=== PATIENT | female | born 1935 | race Caucasian/White ===

== ENCOUNTER → 2018-08-04 | Outpatient (CLI) | payer MEDICARE, OTHER ==
[2018-05-02 17:40] VITALS: BP 148/69
[~2018-08-04] MED LIST: ACET325T9 PO; ALIR150P SQ; CARV6.252 PO; CHOL10003 PO; CYAN10005 PO; DIFL500T PO; LOSA50TA7 PO; MELA3TAB2 PO; PROP150T2 PO; SUCR1TAB PO; TIZA4TAB PO; TORS20TA2 PO; WARF2TAB96 PO; ZOLP5TAB5 PO
--- NOTE | 2018-08-04 16:01 | RAD ---
LOWER EXT JOINT WO RT dated 08/04/2018 3:30 PM Indication: GENERALIZED WROSENING KNEE PAIN X 5DAYS, NO SX HX, NO PRIORS pain .. Comparison: No comparison is available. Technique: Routine multiplanar multisequence imaging performed. . Findings: Mild hypertrophic changes in all 3 knee compartments. Mild thinning and surface irregularity of the articular cartilage throughout. There is full-thickness cartilage fissuring at the trochlear groove and medial femoral trochlea with near full-thickness cartilage loss at the medial and lateral patellar facet. No bone marrow edema. There is a moderate size joint effusion. There is heterogeneous debris or a large loose body within the suprapatellar joint space that measures up to 2.7 cm in size. No significant synovial thickening. Tiny popliteal cyst. Anterior cruciate and posterior cruciate ligaments intact. Medial and lateral collateral complexes are intact. Iliotibial band, popliteus tendon and pes anserine complex within normal limits. Quadriceps and patellar tendon are intact. No abnormality of the medial or lateral retinaculum. Mild patchy superficial infrapatellar edema, nonspecific. There is linear oblique signal at the posterior horn of medial meniscus that appears to extend to the tibial articular surface on 2 consecutive sagittal slices. Anterior horn and body are intact. Lateral meniscus is normal in morphology and signal. IMPRESSION: 1. Suspected small horizontal oblique tear posterior horn the medial meniscus. 2. Mild tricompartmental degenerative arthrosis and chondromalacia. There is full-thickness cartilage loss of the anterior compartment. 3. Moderate size joint effusion with heterogeneous signal at the suprapatellar joint space. This could represent a large loose body or complex joint effusion or hemarthrosis. Correlate with plain film radiographs. Electronically signed by: Dayo Latif MD (08/04/2018 3:57 PM) [id number]
== END | disposition home or self-care (01) ==
LOC: MRI 14:47
PROVIDERS: ATTEND Family Medicine
DX: M17.11 Unilateral primary osteoarthritis, right knee (principal); M25.461 Effusion, right knee; M94.261 Chondromalacia, right knee; R60.0 Localized edema
CPT/HCPCS: 73721

== ENCOUNTER 2019-11-21 16:27 | Observation (INO) | payer MEDICARE ==
[~2019-11-21] VITALS: Ht 152.4 cm; Wt 66.6 kg
[~2019-11-21 16:27] MED LIST changes: +CARV6.2511 PO; -CARV6.252 PO; +CYAN-25 PO; -CYAN10005 PO; +LOSA-73 PO; -LOSA50TA7 PO; -MELA3TAB2 PO; +MELA3TAB56 PO; -TIZA4TAB PO; +TIZA4TAB2 PO
--- NOTE | 2019-11-21 16:54 | PHYS DOC ---
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 She states that she had 2 episodes today when she felt her heart beating fast, consistent with her prior atrial fibrillation, the second episode of which, was associated with discomfort in her chest. While her palpitations have improved, she is still having some generalized chest discomfort. A prehospital EKG did document the patient in a rhythm which appeared to be consistent with rapid atrial fibrillation, says he was some lateral ST depression. There was no ST elevation. The patient did take at least 324 mg of aspirin prior to arrival. There are no alleviating or exacerbating factors to her symptoms. Review of Systems Review of Systems Constitutional: Denies fever or chills [] Eyes: Denies change in visual acuity, redness, or eye pain [] HENT: Denies nasal congestion or sore throat [] Respiratory: Denies cough or shortness of breath [] Cardiovascular: No additional information not addressed in HPI [] GI: Denies abdominal pain, nausea, vomiting, bloody stools or diarrhea [] : Denies dysuria or hematuria [] Musculoskeletal: Denies back pain or joint pain [] Integument: Denies rash or skin lesions [] Neurologic: Denies headache, focal weakness or sensory changes [] Endocrine: Denies polyuria or polydipsia [] All other systems were reviewed and found to be within normal limits, except as documented in this note. Allergies Allergies Allergies Coded Allergies Type Severity Reaction Last Updated Verified ezetimibe Allergy Unknown 04/30/18 Yes fexofenadine Allergy Unknown 04/30/18 Yes gabapentin Allergy Unknown 04/30/18 Yes tramadol Allergy Unknown 04/30/18 Yes Uncoded Allergies Type Severity Reaction Last Updated Verified DICLOANCE Allergy Unknown 04/30/18 Physical Exam Physical Exam PHYSICAL EXAM: CONSTITUTIONAL: Well developed, well nourished HEAD: normocephalic, atraumatic EENT: PERRL, EOMI. Conjunctivae normal color, sclerae non-icteric; moist mucous membranes. NECK: Supple, non-tender; no meningismus. LUNGS: Lungs CTA, breathing even and unlabored. Normal air movement. HEART: Regular rate and rhythm, no murmur CHEST: No deformity; non-tender ABDOMEN: The abdomen is soft, and non-tender, no masses or bruits. EXTREM: Normal ROM; no deformity, no calf tenderness. Normal pulses palpable in all extremities. There is no pedal edema. SKIN: No rash; no diaphoresis NEURO: Alert; normal speech and cognition; CN's grossly intact; strength grossly intact without focal deficit. BACK: No CVA TTP. Current Patient Data Vital Signs Vital Signs Date Time Temp Pulse Resp B/P (MAP) Pulse Ox O2 Delivery O2 Flow Rate FiO2 11/21/19 17:18 98.0 82 16 158/90 (112) 99 Room Air 98.0 Lab Values Laboratory Tests Test 11/21/19 16:38 White Blood Count 7.4 x10^3/uL (4.0-11.0) Red Blood Count 3.87 x10^6/uL (3.50-5.40) Hemoglobin 11.8 g/dL (12.0-15.5) L Hematocrit 34.8 % (36.0-47.0) L Mean Corpuscular Volume 90 fL (79-100) Mean Corpuscular Hemoglobin 30 pg (25-35) Mean Corpuscular Hemoglobin Concent 34 g/dL (31-37) Red Cell Distribution Width 13.2 % (11.5-14.5) Platelet Count 379 x10^3/uL (140-400) Neutrophils (%) (Auto) 70 % (31-73) Lymphocytes (%) (Auto) 18 % (24-48) L Monocytes (%) (Auto) 10 % (0-9) H Eosinophils (%) (Auto) 2 % (0-3) Basophils (%) (Auto) 0 % (0-3) Neutrophils # (Auto) 5.2 x10^3/uL (1.8-7.7) Lymphocytes # (Auto) 1.3 x10^3/uL (1.0-4.8) Monocytes # (Auto) 0.7 x10^3/uL (0.0-1.1) Eosinophils # (Auto) 0.1 x10^3/uL (0.0-0.7) Basophils # (Auto) 0.0 x10^3/uL (0.0-0.2) Prothrombin Time 15.4 SEC (11.7-14.0) H Prothrombin Time INR 1.3 (0.8-1.1) H Sodium Level 138 mmol/L (136-145) Potassium Level 3.8 mmol/L (3.5-5.1) Chloride Level 103 mmol/L (98-107) Carbon Dioxide Level 27 mmol/L (21-32) Anion Gap 8 (6-14) Blood Urea Nitrogen 17 mg/dL (7-20) Creatinine 0.9 mg/dL (0.6-1.0) Estimated GFR (Cockcroft-Gault) 59.4 BUN/Creatinine Ratio 19 (6-20) Glucose Level 122 mg/dL (70-99) H Calcium Level 9.6 mg/dL (8.5-10.1) Total Bilirubin 0.2 mg/dL (0.2-1.0) Aspartate Amino Transferase (AST) 15 U/L (15-37) Alanine Aminotransferase (ALT) 15 U/L (14-59) Alkaline Phosphatase 67 U/L (46-116) Troponin I Quantitative < 0.017 ng/mL (0.000-0.055) RU-Fmh-L-Type Natriuretic Peptide 1144 pg/mL (0-449) H Total Protein 7.4 g/dL (6.4-8.2) Albumin 3.0 g/dL (3.4-5.0) L Albumin/Globulin Ratio 0.7 (1.0-1.7) L Laboratory Tests 11/21/19 16:38 Laboratory Tests 11/21/19 16:38 EKG EKG []Normal sinus rhythm at a rate of 77 beats for minute, normal axis, normal intervals, nonspecific ST/T changes. Radiology/Procedures Radiology/Procedures ER physician preliminary chest x-ray interpretation: No acute abnormality.[] Course & Med Decision Making Course & Med Decision Making Pertinent Labs and Imaging studies reviewed. (See chart for details) []5:50 PM:The patient's condition remains stable. I spoke with the hospitalist, who accepted the patient to the hospital for further evaluation and treatment. The patient is still having some mild ongoing chest discomfort and will be given some nitroglycerin. She did have some lateral EKG changes in her lateral leads on the prehospital EKG which are likely rate dependent. Dragon Disclaimer Dragon Disclaimer This electronic medical record was generated, in whole or in part, using a voice recognition dictation system. Departure Departure Impression: Primary Impression: Chest pain Additional Impression: Paroxysmal atrial fibrillation Disposition: 09 ADMITTED INPATIENT Admitting Physician: HORTENCIA Condition: STABLE Referrals: KAYLEEN CABRAL MD (PCP) Problem Qualifiers JOSE ANTONIO AMBROSIO MD Nov 21, 2019 16:54
[2019-11-21 17:00] LABS: BASO % 0 % (0-3); EOS # 0.1 x10^3/uL (0.0-0.7); EOS % 2 % (0-3); HEMATOCRIT 34.8 % (36.0-47.0); HEMOGLOBIN 11.8 g/dL (12.0-15.5); LYMPH # 1.3 x10^3/uL (1.0-4.8); LYMPH % 18 % (24-48); MEAN CORPUSCULAR HEMOGLOBIN 30 pg (25-35); MEAN CORPUSCULAR HGB CONC 34 g/dL (31-37); MEAN CORPUSCULAR VOLUME 90 fL (79-100); MONO # 0.7 x10^3/uL (0.0-1.1); MONO % 10 % (0-9); NEUT # 5.2 x10^3/uL (1.8-7.7); NEUT % 70 % (31-73); PLATELET COUNT 379 x10^3/uL (140-400); RED BLOOD COUNT 3.87 x10^6/uL (3.50-5.40); RED CELL DISTRIBUTION WIDTH 13.2 % (11.5-14.5); WHITE BLOOD COUNT 7.4 x10^3/uL (4.0-11.0)
[2019-11-21 17:11] LABS: CALCIUM 9.6 mg/dL (8.5-10.1); CREATININE 0.9 mg/dL (0.6-1.0); GFR 59.4; POTASSIUM 3.8 mmol/L (3.5-5.1)
[2019-11-21 17:14] LABS: PROTHROMBIN TIME PATIENT 15.4 SEC (11.7-14.0)
[2019-11-21 17:17] LABS: ALBUMIN/GLOBULIN RATIO 0.7 (1.0-1.7); TOTAL BILIRUBIN 0.2 mg/dL (0.2-1.0); TOTAL PROTEIN 7.4 g/dL (6.4-8.2)
[2019-11-21] MEDS ORDERED: tiZANidine 4 MG TABLET. PO PRN (18:00)
[2019-11-21] MEDS ORDERED: guaiFENesin ORAL 200 MG/10 ML LIQUID. PO PRN (18:00)
[2019-11-21] MEDS ORDERED: LORazepam 0.5 MG TABLET PO PRN (18:00)
[2019-11-21] MEDS ORDERED: DOCUSATE SODIUM 100 MG CAPSULE. PO PRN (18:00)
[2019-11-21] MEDS ORDERED: ACETAMINOPHEN 325 MG TABLET. PO PRN (18:00)
[2019-11-21] MEDS ORDERED: NITROGLYCERIN OINT 1 GM PACKET. TP ONE (18:00)
[2019-11-21] MEDS ORDERED: ZOLPIDEM 5 MG TABLET. PO PRN (18:00)
[2019-11-21] MEDS ORDERED: ALBUTEROL SULFATE 2.5 MG/3 ML NEBU. NEB PRN (18:00)
[2019-11-21] MEDS ORDERED: ONDANSETRON PF 4 MG/2 ML VIAL. IV PRN (18:00)
--- NOTE | 2019-11-21 18:52 | RAD ---
EXAM: AP View of the chest DATE: 11/21/2019 4:41 PM INDICATION: Chest pain COMPARISON: No Prior FINDINGS: The heart is not enlarged. Mediastinal and hilar contours are stable. Diffuse bilateral interstitial prominence. Minimal patchy opacity left lung base may represent atelectasis or developing consolidation. No pleural effusion or pneumothorax. IMPRESSION: 1. Mild diffuse bilateral interstitial prominence, nonspecific possibly atypical infectious or inflammatory process or chronic interstitial changes. Superimposed patchy opacities left lung base favored to represent atelectasis although developing consolidation is not excluded. Electronically signed by: Hussein Feliciano MD (11/21/2019 5:07 PM) [id number]
--- NOTE | 2019-11-21 18:52 | EKG ---
[facility] [address] [place] [address] Test Date: 2019-11-21 Test Time: 16:39:17 Pat Name: CHRISTOPHER CABRERALORI Department: Room: Gender: F Supervisor Tan Room: : 1935 Requested By: JOSE ANTONIO AMBROSIO Order Number: [id number] Reading MD: Measurements Intervals [place] Rate: 77 P: 90 IA: 242 QRS: 17 QRSD: 84 T: 24 QT: 358 QTc: 407 Interpretive Statements SINUS RHYTHM PROLONGED IA INTERVAL ABNORMAL ECG RI6.01 No previous ECG available for comparison
[2019-11-21 18:54] VITALS: BP 186/89
[2019-11-21] MEDS ORDERED: DOCUSATE SODIUM 100 MG CAPSULE. PO SCH (21:00)
[2019-11-21] MEDS ORDERED: PREGABALIN 75 MG CAPSULE PO SCH (21:00)
[2019-11-21] MEDS ORDERED: NON FORMULARY ITEM (Melatonin 10 MG) PO SCH (21:00)
[2019-11-21] MEDS ORDERED: LABETALOL 20 MG/4 ML DISP.SYRIN. IVP PRN (21:15)
[2019-11-21] MEDS: SUCRALFATE 1 GM TABLET. PO SCH (21:25)
[2019-11-21] MEDS: PROPAFENONE 150 MG TABLET. PO SCH (21:25)
[2019-11-21] MEDS: CARVEDILOL 6.25 MG TABLET. PO SCH (21:26)
[2019-11-21] MEDS: WARFARIN 2 MG TABLET. PO SCH (21:28)
[2019-11-21 22:53] VITALS: BP 118/54
--- NOTE | 2019-11-21 23:07 | PDOC1 ---
History and Physical Date of Admission Date of Admission 11/21/2019 Identification/Chief Complaint Chief Complaint Palpitations History of Present Illness History of Present Illness Patient is an 84-year-old female with past medical history of atrial fibrillation anemia of chronic disease fibromyalgia post polio syndrome who had been her usual state of health until today when in the morning she started complaining off sensation of heart racing. The patient felt quite bothersome due to her palpitations and she refers having also pain that she cannot describe. Moderate to severe intensity lasting seconds intermittent no radiation to the carotids no association with nausea vomiting no sensation of impending doom. The patient has had a history of atrial fibrillation for quite some years now and due to her symptoms she decided to come to the emergency department. She is usually under the care of Dr. Cadet at [facility] she was seen 2-3 weeks prior to this admission at her [facility] and normal results were conveyed to the patient at that time. The patient denies paroxysmal nocturnal dyspnea nor orthopnea reported no peripheral edema no fever chills no cough sputum production no nausea vomiting or diarrhea was reported no urinary symptoms 3 were asked to admit the patient for rate control and evaluation of her palpitations. At time of my evaluation the patient is in sinus rhythm asymptomatic and her chest discomfort due to the palpitations has subsided as well. Reassurances been provided plan of care has been explained detail all of her concerns were addressed to the best of my abilities Past Medical History Cardiovascular: AFIB CENTRAL NERVOUS SYSTEM: Other GI: GERD Heme/Onc: Cancer Rheumatologic: Fibromyalgia Past Surgical History Past Surgical History: Cholecystectomy, Cataract Removal, Mastectomy, Hysterectomy, Other Family History Family History: Heart Disease, Other Social History ALCOHOL: none Drugs: None Current Problem List Problem List Problems Medical Problems: (1) Chest pain Status: Acute (2) Paroxysmal atrial fibrillation Status: Acute Current Medications Current Medications Current Medications Medications (Trade) Dose Ordered Sig/[place] Start Time Stop Time Status Last Admin Dose Admin Acetaminophen (Tylenol) 650 mg Q8HRS 11/21/19 22:00 Albuterol Sulfate (Ventolin Neb Soln) 2.5 mg PRN Q4HRS PRN 11/21/19 18:00 Carvedilol (Coreg) 6.25 mg BID 11/21/19 21:00 11/21/19 21:26 6.25 MG Cyanocobalamin (Vitamin B-12) 1,000 mcg DAILY 11/22/19 09:00 Docusate Sodium (Colace) 100 mg HS 11/21/19 21:00 11/21/19 21:25 100 MG Guaifenesin (Robitussin) 200 mg PRN Q4HRS PRN 11/21/19 18:00 Labetalol HCl (Normodyne Iv Push) 10 mg PRN Q2HR PRN 11/21/19 21:15 Lorazepam (Ativan) 0.5 mg PRN Q4HRS PRN 11/21/19 18:00 Losartan Potassium (Cozaar) 50 mg DAILY 11/22/19 09:00 Nitroglycerin (Nitro-Bid Oint) 1 inch 1X ONCE 11/21/19 18:00 11/21/19 18:15 DC 11/21/19 18:42 1 INCH Non-Formulary Medication (Alirocumab (Praluent Pen)) 150 mg QMONTH 12/21/19 09:00 UNV Non-Formulary Medication (Melatonin ) 10 mg QHS 11/21/19 21:00 UNV Ondansetron HCl (Zofran) 4 mg PRN Q4HRS PRN 11/21/19 18:00 Pregabalin (Lyrica) 75 mg HS 11/21/19 21:00 11/21/19 21:27 75 MG Propafenone HCl (Rythmol) 150 mg TID 11/21/19 21:00 11/21/19 21:25 150 MG Sucralfate (Carafate) 1 gm BID 11/21/19 21:00 11/21/19 21:25 1 GM Tizanidine HCl (Zanaflex) 4 mg [id number] 11/22/19 09:00 Torsemide (Demadex) 20 mg QODAY 11/22/19 09:00 Warfarin Sodium (Coumadin Per Physician) 1 each PRN DAILY PRN 11/21/19 19:30 Warfarin Sodium (Coumadin) 2 mg DAILY16 11/21/19 20:00 11/21/19 21:28 2 MG Zolpidem Tartrate (Ambien) 5 mg PRN QHS PRN 11/21/19 18:00 Allergies Allergies Allergies Coded Allergies Type Severity Reaction Last Updated Verified ezetimibe Allergy Intermediate 11/21/19 Yes fexofenadine Allergy Intermediate 11/21/19 Yes gabapentin Allergy Intermediate 11/21/19 Yes tramadol Allergy Intermediate 11/21/19 Yes prednisone Allergy Unknown 11/21/19 Yes Uncoded Allergies Type Severity Reaction Last Updated Verified DICLOANCE Allergy Unknown 04/30/18 ROS Review of System CONSTITUTIONAL: No fever or chills EYES: No recent changes SKIN: No rash or itching CARDIOVASCULAR: No chest pain, syncope, palpitations, or edema RESPIRATORY: No SOB or cough GASTROINTESTINAL: No nausea, vomiting or abdominal pain NEUROLOGICAL: No headaches or weakness ENDOCRINE: No cold or heat intolerance GENITOURINARY: No urgency or frequency of urination MUSCULOSKELETAL: No back pain or joint pain LYMPHATICS: No enlarged lymph nodes PSYCHIATRIC: No anxiety or depression Physical Exam Physical Exam GEN.: No apparent distress. Alert and oriented. HEENT: Head is normocephalic, atraumatic NECK: Supple. LUNGS: Clear to auscultation. HEART: RRR, S1, S2 present. Peripheral pulses intact ABDOMEN: Soft, nontender. Positive bowel sounds. EXTREMITIES: Without any cyanosis. NEUROLOGIC: Normal speech, normal tone PSYCHIATRIC: Normal affect, normal mood. SKIN: No ulcerations Vitals Vitals Vital Signs Date Time Temp Pulse Resp B/P (MAP) Pulse Ox O2 Delivery O2 Flow Rate FiO2 11/21/19 22:00 96 Room Air 11/21/19 21:26 76 186/89 11/21/19 18:54 98.1 16 98.1 Labs Labs Laboratory Tests Test 11/21/19 16:38 White Blood Count 7.4 x10^3/uL (4.0-11.0) Red Blood Count 3.87 x10^6/uL (3.50-5.40) Hemoglobin 11.8 g/dL (12.0-15.5) Hematocrit 34.8 % (36.0-47.0) Mean Corpuscular Volume 90 fL (79-100) Mean Corpuscular Hemoglobin 30 pg (25-35) Mean Corpuscular Hemoglobin Concent 34 g/dL (31-37) Red Cell Distribution Width 13.2 % (11.5-14.5) Platelet Count 379 x10^3/uL (140-400) Neutrophils (%) (Auto) 70 % (31-73) Lymphocytes (%) (Auto) 18 % (24-48) Monocytes (%) (Auto) 10 % (0-9) Eosinophils (%) (Auto) 2 % (0-3) Basophils (%) (Auto) 0 % (0-3) Neutrophils # (Auto) 5.2 x10^3/uL (1.8-7.7) Lymphocytes # (Auto) 1.3 x10^3/uL (1.0-4.8) Monocytes # (Auto) 0.7 x10^3/uL (0.0-1.1) Eosinophils # (Auto) 0.1 x10^3/uL (0.0-0.7) Basophils # (Auto) 0.0 x10^3/uL (0.0-0.2) Prothrombin Time 15.4 SEC (11.7-14.0) Prothromb Time International Ratio 1.3 (0.8-1.1) Sodium Level 138 mmol/L (136-145) Potassium Level 3.8 mmol/L (3.5-5.1) Chloride Level 103 mmol/L (98-107) Carbon Dioxide Level 27 mmol/L (21-32) Anion Gap 8 (6-14) Blood Urea Nitrogen 17 mg/dL (7-20) Creatinine 0.9 mg/dL (0.6-1.0) Estimated GFR (Cockcroft-Gault) 59.4 BUN/Creatinine Ratio 19 (6-20) Glucose Level 122 mg/dL (70-99) Calcium Level 9.6 mg/dL (8.5-10.1) Total Bilirubin 0.2 mg/dL (0.2-1.0) Aspartate Amino Transf (AST/SGOT) 15 U/L (15-37) Alanine Aminotransferase (ALT/SGPT) 15 U/L (14-59) Alkaline Phosphatase 67 U/L (46-116) Troponin I Quantitative < 0.017 ng/mL (0.000-0.055) GP-Pch-H-Type Natriuretic Peptide 1144 pg/mL (0-449) Total Protein 7.4 g/dL (6.4-8.2) Albumin 3.0 g/dL (3.4-5.0) Albumin/Globulin Ratio 0.7 (1.0-1.7) Laboratory Tests Test 11/21/19 16:38 White Blood Count 7.4 x10^3/uL (4.0-11.0) Red Blood Count 3.87 x10^6/uL (3.50-5.40) Hemoglobin 11.8 g/dL (12.0-15.5) Hematocrit 34.8 % (36.0-47.0) Mean Corpuscular Volume 90 fL (79-100) Mean Corpuscular Hemoglobin 30 pg (25-35) Mean Corpuscular Hemoglobin Concent 34 g/dL (31-37) Red Cell Distribution Width 13.2 % (11.5-14.5) Platelet Count 379 x10^3/uL (140-400) Neutrophils (%) (Auto) 70 % (31-73) Lymphocytes (%) (Auto) 18 % (24-48) Monocytes (%) (Auto) 10 % (0-9) Eosinophils (%) (Auto) 2 % (0-3) Basophils (%) (Auto) 0 % (0-3) Neutrophils # (Auto) 5.2 x10^3/uL (1.8-7.7) Lymphocytes # (Auto) 1.3 x10^3/uL (1.0-4.8) Monocytes # (Auto) 0.7 x10^3/uL (0.0-1.1) Eosinophils # (Auto) 0.1 x10^3/uL (0.0-0.7) Basophils # (Auto) 0.0 x10^3/uL (0.0-0.2) Prothrombin Time 15.4 SEC (11.7-14.0) Prothromb Time International Ratio 1.3 (0.8-1.1) Sodium Level 138 mmol/L (136-145) Potassium Level 3.8 mmol/L (3.5-5.1) Chloride Level 103 mmol/L (98-107) Carbon Dioxide Level 27 mmol/L (21-32) Anion Gap 8 (6-14) Blood Urea Nitrogen 17 mg/dL (7-20) Creatinine 0.9 mg/dL (0.6-1.0) Estimated GFR (Cockcroft-Gault) 59.4 BUN/Creatinine Ratio 19 (6-20) Glucose Level 122 mg/dL (70-99) Calcium Level 9.6 mg/dL (8.5-10.1) Total Bilirubin 0.2 mg/dL (0.2-1.0) Aspartate Amino Transf (AST/SGOT) 15 U/L (15-37) Alanine Aminotransferase (ALT/SGPT) 15 U/L (14-59) Alkaline Phosphatase 67 U/L (46-116) Troponin I Quantitative < 0.017 ng/mL (0.000-0.055) IW-The-H-Type Natriuretic Peptide 1144 pg/mL (0-449) Total Protein 7.4 g/dL (6.4-8.2) Albumin 3.0 g/dL (3.4-5.0) Albumin/Globulin Ratio 0.7 (1.0-1.7) VTE Prophylaxis Ordered VTE Prophylaxis Devices: Yes VTE Pharmacological Prophylaxi: Yes Assessment/Plan Assessment/Plan Atrial fibrillation symptomatic Chest discomfort due to the above, resolved history of essential hypertension history of fibromyalgia history of post polio syndrome Normocytic anemia most likely of chronic inflammation Left lung base atelectasis, developing consolidation? PlanL We'll follow with an two-view x-ray in the a.m. Cardiac enzymes Telemetry Resume home medications Try to get records in the a.m. from Dr. Cadet's office DVT prophylaxis patient is on Coumadin for her chronic atrial fibrillation Further recommendations based on the clinical course KIM EDWARDS MD Nov 21, 2019 23:07
[2019-11-21] MEDS: ACETAMINOPHEN 325 MG TABLET. PO SCH (23:36)
[2019-11-22 03:05] VITALS: BP 162/72
[2019-11-22 06:03] LABS: CHOLESTEROL/HDL RATIO 3.5
[2019-11-22 06:29] LABS: PROTHROMBIN TIME PATIENT 15.8 SEC (11.7-14.0)
[2019-11-22 07:00] VITALS: BP 195/86
[2019-11-22] MEDS ORDERED: TORSEMIDE 20 MG TABLET. PO SCH (09:00)
[2019-11-22] MEDS ORDERED: LOSARTAN POTASSIUM 50 MG TABLET. PO SCH (09:00)
[2019-11-22] MEDS: SUCRALFATE 1 GM TABLET. PO SCH (09:00)
[2019-11-22] MEDS: PROPAFENONE 150 MG TABLET. PO SCH ×2 (09:00→14:00)
[2019-11-22] MEDS ORDERED: CYANOCOBALAMIN (VITAMIN B-12) 1,000 MCG TABLET. PO SCH (09:00)
[2019-11-22] MEDS: CARVEDILOL 6.25 MG TABLET. PO SCH (09:01)
[2019-11-22] MEDS: tiZANidine 4 MG TABLET. PO SCH ×2 (09:02→14:00)
[2019-11-22] MEDS: ACETAMINOPHEN 325 MG TABLET. PO SCH ×2 (09:02→14:00)
[2019-11-22 11:00] VITALS: BP 66/31
[2019-11-22 11:05] VITALS: BP 86/51
[2019-11-22 11:10] VITALS: BP 79/50
--- NOTE | 2019-11-22 13:02 | EKG ---
[facility] [address] [place] [address] Test Date: 2019-11-22 Test Time: 12:58:32 Pat Name: CHRISTOPHER LIAO Department: Room: 209 1 Gender: F [employer]ine [employer] Operator: ROSALBA : 1935 Requested By: KIM EDWARDS Order Number: [id number] Reading MD: Measurements Intervals [place] Rate: 55 P: 62 WI: 280 QRS: 12 QRSD: 94 T: 17 QT: 442 QTc: 425 Interpretive Statements SINUS RHYTHM PROLONGED WI INTERVAL QRS(T) CONTOUR ABNORMALITY CONSISTENT WITH INFERIOR INFARCT PROBABLY OLD ABNORMAL ECG RI6.02 Compared to ECG 04/30/2018 20:55:59 Myocardial infarct finding now present
--- NOTE | 2019-11-22 13:53 | PDOC3 ---
Discharge Summary Visit Information Date of Admission: Nov 21, 2019 Date of Discharge: Nov 22, 2019 Admitting Diagnosis Comment: Atrial fibrillation symptomatic Chest discomfort due to the above, resolved history of essential hypertension history of fibromyalgia history of post polio syndrome Normocytic anemia most likely of chronic inflammation Left lung base atelectasis, developing consolidation? Final Diagnosis Problems Medical Problems: (1) Chest pain Status: Acute (2) Paroxysmal atrial fibrillation symptomatic currently resolved Status: Acute Brief Hospital Course Allergies Allergies Coded Allergies Type Severity Reaction Last Updated Verified ezetimibe Allergy Intermediate 11/21/19 Yes fexofenadine Allergy Intermediate 11/21/19 Yes gabapentin Allergy Intermediate 11/21/19 Yes tramadol Allergy Intermediate 11/21/19 Yes prednisone Allergy Unknown 11/21/19 Yes Uncoded Allergies Type Severity Reaction Last Updated Verified DICLOANCE Allergy Unknown 04/30/18 Vital Signs Vital Signs Date Time Temp Pulse Resp B/P (MAP) Pulse Ox O2 Delivery O2 Flow Rate FiO2 11/22/19 11:10 58 79/50 (60) 11/22/19 11:00 97.7 16 97 Room Air 97.7 Lab Results Laboratory Tests Test 11/21/19 16:38 11/21/19 22:35 11/22/19 05:11 White Blood Count 7.4 x10^3/uL (4.0-11.0) Red Blood Count 3.87 x10^6/uL (3.50-5.40) Hemoglobin 11.8 g/dL (12.0-15.5) Hematocrit 34.8 % (36.0-47.0) Mean Corpuscular Volume 90 fL (79-100) Mean Corpuscular Hemoglobin 30 pg (25-35) Mean Corpuscular Hemoglobin Concent 34 g/dL (31-37) Red Cell Distribution Width 13.2 % (11.5-14.5) Platelet Count 379 x10^3/uL (140-400) Neutrophils (%) (Auto) 70 % (31-73) Lymphocytes (%) (Auto) 18 % (24-48) Monocytes (%) (Auto) 10 % (0-9) Eosinophils (%) (Auto) 2 % (0-3) Basophils (%) (Auto) 0 % (0-3) Neutrophils # (Auto) 5.2 x10^3/uL (1.8-7.7) Lymphocytes # (Auto) 1.3 x10^3/uL (1.0-4.8) Monocytes # (Auto) 0.7 x10^3/uL (0.0-1.1) Eosinophils # (Auto) 0.1 x10^3/uL (0.0-0.7) Basophils # (Auto) 0.0 x10^3/uL (0.0-0.2) Prothrombin Time 15.4 SEC (11.7-14.0) 15.8 SEC (11.7-14.0) Prothromb Time International Ratio 1.3 (0.8-1.1) 1.3 (0.8-1.1) Sodium Level 138 mmol/L (136-145) Potassium Level 3.8 mmol/L (3.5-5.1) Chloride Level 103 mmol/L (98-107) Carbon Dioxide Level 27 mmol/L (21-32) Anion Gap 8 (6-14) Blood Urea Nitrogen 17 mg/dL (7-20) Creatinine 0.9 mg/dL (0.6-1.0) Estimated GFR (Cockcroft-Gault) 59.4 BUN/Creatinine Ratio 19 (6-20) Glucose Level 122 mg/dL (70-99) Calcium Level 9.6 mg/dL (8.5-10.1) Total Bilirubin 0.2 mg/dL (0.2-1.0) Aspartate Amino Transf (AST/SGOT) 15 U/L (15-37) Alanine Aminotransferase (ALT/SGPT) 15 U/L (14-59) Alkaline Phosphatase 67 U/L (46-116) Troponin I Quantitative < 0.017 ng/mL (0.000-0.055) < 0.017 ng/mL (0.000-0.055) 0.022 ng/mL (0.000-0.055) KW-Adn-R-Type Natriuretic Peptide 1144 pg/mL (0-449) Total Protein 7.4 g/dL (6.4-8.2) Albumin 3.0 g/dL (3.4-5.0) Albumin/Globulin Ratio 0.7 (1.0-1.7) Triglycerides Level 75 mg/dL (0-150) Cholesterol Level 178 mg/dL (0-200) LDL Cholesterol, Calculated 112 mg/dL (0-100) VLDL Cholesterol, Calculated 15 mg/dL (0-40) Non-HDL Cholesterol Calculated 127 mg/dL (0-129) HDL Cholesterol 51 mg/dL (40-60) Cholesterol/HDL Ratio 3.5 Laboratory Tests Test 11/21/19 16:38 11/21/19 22:35 11/22/19 05:11 White Blood Count 7.4 x10^3/uL (4.0-11.0) Red Blood Count 3.87 x10^6/uL (3.50-5.40) Hemoglobin 11.8 g/dL (12.0-15.5) Hematocrit 34.8 % (36.0-47.0) Mean Corpuscular Volume 90 fL (79-100) Mean Corpuscular Hemoglobin 30 pg (25-35) Mean Corpuscular Hemoglobin Concent 34 g/dL (31-37) Red Cell Distribution Width 13.2 % (11.5-14.5) Platelet Count 379 x10^3/uL (140-400) Neutrophils (%) (Auto) 70 % (31-73) Lymphocytes (%) (Auto) 18 % (24-48) Monocytes (%) (Auto) 10 % (0-9) Eosinophils (%) (Auto) 2 % (0-3) Basophils (%) (Auto) 0 % (0-3) Neutrophils # (Auto) 5.2 x10^3/uL (1.8-7.7) Lymphocytes # (Auto) 1.3 x10^3/uL (1.0-4.8) Monocytes # (Auto) 0.7 x10^3/uL (0.0-1.1) Eosinophils # (Auto) 0.1 x10^3/uL (0.0-0.7) Basophils # (Auto) 0.0 x10^3/uL (0.0-0.2) Prothrombin Time 15.4 SEC (11.7-14.0) 15.8 SEC (11.7-14.0) Prothromb Time International Ratio 1.3 (0.8-1.1) 1.3 (0.8-1.1) Sodium Level 138 mmol/L (136-145) Potassium Level 3.8 mmol/L (3.5-5.1) Chloride Level 103 mmol/L (98-107) Carbon Dioxide Level 27 mmol/L (21-32) Anion Gap 8 (6-14) Blood Urea Nitrogen 17 mg/dL (7-20) Creatinine 0.9 mg/dL (0.6-1.0) Estimated GFR (Cockcroft-Gault) 59.4 BUN/Creatinine Ratio 19 (6-20) Glucose Level 122 mg/dL (70-99) Calcium Level 9.6 mg/dL (8.5-10.1) Total Bilirubin 0.2 mg/dL (0.2-1.0) Aspartate Amino Transf (AST/SGOT) 15 U/L (15-37) Alanine Aminotransferase (ALT/SGPT) 15 U/L (14-59) Alkaline Phosphatase 67 U/L (46-116) Troponin I Quantitative < 0.017 ng/mL (0.000-0.055) < 0.017 ng/mL (0.000-0.055) 0.022 ng/mL (0.000-0.055) HL-Stp-W-Type Natriuretic Peptide 1144 pg/mL (0-449) Total Protein 7.4 g/dL (6.4-8.2) Albumin 3.0 g/dL (3.4-5.0) Albumin/Globulin Ratio 0.7 (1.0-1.7) Triglycerides Level 75 mg/dL (0-150) Cholesterol Level 178 mg/dL (0-200) LDL Cholesterol, Calculated 112 mg/dL (0-100) VLDL Cholesterol, Calculated 15 mg/dL (0-40) Non-HDL Cholesterol Calculated 127 mg/dL (0-129) HDL Cholesterol 51 mg/dL (40-60) Cholesterol/HDL Ratio 3.5 Brief Hospital Course Ms. Puente is a 84 old female with past medical history off atrial fibrillation who came to our institution with reports of palpitations. Patient not percent rapid ventricular response while inpatient. She was started on her home hospital medications but due to the description of some chest discomfort as part of her palpitations we were asked to the patient to rule out ACS. This was accomplished with 3 sets of cardiac enzymes which were negative. Her symptoms resolve quite quickly after being admitted to the hospital no changes have been made to her medications. We requested records from her primary yarn twister office Dr. Cadet and arrange for a follow-up appointment with him sooner rather than later. She did percent an episode of hypertension in the 190 range which resolved towards the end of her hospital stay. She was not exhibiting neurological deficits she did not have lightheadedness orthostatic vital signs were checked with negative findings. She was deemed appropriate for dismissal, signs and symptoms of alarm and when to seek medical attention was explained to the patient prior to dismissal. The patient does have subtherapeutic INR have encourage her to follow up with her primary care physician in the a.m. for an INR recheck Assessment Assessment GEN.: No apparent distress. Alert and oriented. HEENT: Head is normocephalic, atraumatic NECK: Supple. LUNGS: Clear to auscultation. HEART: RRR, S1, S2 present. Peripheral pulses intact ABDOMEN: Soft, nontender. Positive bowel sounds. EXTREMITIES: Without any cyanosis. NEUROLOGIC: Normal speech, normal tone PSYCHIATRIC: Normal affect, normal mood. SKIN: No ulcerations Discharge Information Condition at Discharge: Improved Follow Up: Weeks Disposition/Orders: D/C to Home Scheduled Acetaminophen (Tylenol) 325 Mg Tablet, 650 MG PO Q8HRS, (Reported) Entered as Reported by: Louise Leavitt RN on 05/01/18414 Last Action: Continued on 11/21/191748 by KIM EDWARDS MD Alirocumab (Praluent Pen) 150 Mg/1 Ml Pen.injctr, 150 MG SQ QMONTH, (Reported) Entered as Reported by: Louise Leavitt RN on 05/01/18414 Last Action: Converted on 11/21/191748 by KIM EDWARDS MD Carvedilol (Carvedilol ) 6.25 Mg Tablet, 1 TAB PO BID for 90 Days, #180 Ref 3 (Reported) Entered as Reported by: Louise Leavitt RN on 05/01/18414 Last Action: Continued on 11/21/191748 by KIM EDWARDS MD Cholecalciferol (Vitamin D3) (Vitamin D3) 1,000 Unit Tablet, Unknown Dose PO DAILY, #30 Ref 5 (Reported) Entered as Reported by: Louise Leavitt RN on 05/01/18414 Cyanocobalamin (Vitamin B-12) (Vitamin B-12) 1,000 Mcg Tablet, 1 TAB PO DAILY, #30 Ref 2 (Reported) Entered as Reported by: Louise Leavitt RN on 05/01/18414 Last Action: Continued on 11/21/191748 by KIM EDWARDS MD Losartan Potassium (Losartan Potassium) 50 Mg Tablet, 50 MG PO DAILY, (Reported) Entered as Reported by: Louise Leavitt RN on 05/01/18414 Last Action: Continued on 11/21/191748 by KIM EDWARDS MD Melatonin (Melatonin) 3 Mg Tablet, 10 MG PO QHS, (Reported) Entered as Reported by: Louise Leavitt RN on 05/01/18414 Last Action: Converted on 11/21/191748 by KIM EDWARDS MD Propafenone Hcl (Propafenone Hcl) 150 Mg Tablet, 150 MG PO TID, (Reported) Entered as Reported by: Louise Leavitt RN on 05/01/18414 Last Action: Continued on 11/21/191748 by KIM EDWARDS MD Sucralfate (Sucralfate) 1 Gm Tablet, 1 TAB PO BID, #90 Ref 11 (Reported) Entered as Reported by: Louise Leavitt RN on 05/01/18414 Last Action: Continued on 11/21/191748 by KIM EDWARDS MD Torsemide (Torsemide) 20 Mg Tablet, 1 TAB PO QODAY for 90 Days, #90 Ref 1 (Reported) Entered as Reported by: Louise Leavitt RN on 05/01/18414 Last Action: Continued on 11/21/191748 by KIM EDWARDS MD Warfarin Sodium (Warfarin Sodium) 2 Mg Tablet, 1 TAB PO DAILY, #90 Ref 1 (Reported) Entered as Reported by: Louise Leavitt RN on 05/01/18414 Last Action: Continued on 11/21/191748 by KIM EDWARDS MD Scheduled PRN Tizanidine Hcl (Tizanidine Hcl) 4 Mg Tablet, 2 MG PO PRN PRN for MUSCLE SPASMS, (Reported) Entered as Reported by: Louise Leavitt RN on 05/01/18414 Last Action: Continued on 11/21/191748 by KIM EDWARDS MD Zolpidem Tartrate (Zolpidem Tartrate) 5 Mg Tablet, 5 MG PO PRN QHS PRN for INSOMNIA, Ref 0 (Reported) Entered as Reported by: Louise Leavitt RN on 05/01/18414 Last Action: Continued on 11/21/191748 by KIM EDWARDS MD Miscellaneous Medications Diflunisal (Diflunisal) 500 Mg Tablet, 1,000 MG PO for 90 Days, (Reported) Entered as Reported by: Louise Leavitt RN on 05/01/18414 Last Action: HELD on 11/21/191748 by MD JERRY MONCADA HECTOR M MD Nov 22, 2019 13:53
--- NOTE | 2019-11-22 13:59 | NUR ---
SS following for discharge planning. SS reviewed pt chart. Pt is from home with sister and is currently on room air. PT/OT ordered. SS will continue to follow for discharge planning.
[2019-11-22] MEDS: WARFARIN 2 MG TABLET. PO SCH (16:00)
--- NOTE | 2019-11-22 18:18 | NUR ---
spoke to pt and family regarding pt discharging. Follow up appts made for the pt with Dr. [facility] 11/23/19 and pt to have inr checked 11/23/19. pt refused home health and did not want to take medications prior to discharge.
[2019-11-23] MEDS ORDERED: TORSEMIDE 20 MG TABLET. PO SCH (09:00)
[2019-12-21] MEDS ORDERED: ALIROCUMAB 150 MG SQ SCH (09:00)
== END 2019-11-22 16:00 | disposition home or self-care (01) ==
LOC: ER 16:27 → 2 NORTH 17:50
PROVIDERS: ADMIT Internal Medicine; ATTEND Internal Medicine
DX: R07.89 Other chest pain (principal); I48.0 Paroxysmal atrial fibrillation; K21.9 Gastro-esophageal reflux disease without esophagitis; Z90.49 Acquired absence of other specified parts of digestive tract; Z98.49 Cataract extraction status, unspecified eye; Z90.710 Acquired absence of both cervix and uterus
CPT/HCPCS: 36415; 71045; 80053; 80061; 83880; 84145; 84484; 85025; 85610; 93005; 97161; 97166; 99285; G0378; G0379

== ENCOUNTER → 2020-07-16 | Outpatient (CLI) | payer MEDICARE ==
[~2020-07-16] MED LIST changes: +ACET-1871 PO; +DOCU-150 PO; +ECON15CR3 TP; +EVOL140P3 SQ; +FERR1TAB9 PO; +LOSA100T14 PO; +MELA3TAB4 PO; -MELA3TAB56 PO; +PREG100C PO; +WARF3TAB50 PO
--- NOTE | 2020-07-16 12:55 | PDOC1 ---
INITIAL PAIN CONSULT DATE OF SERVICE: DOS: DATE: 07/16/20 TIME: 12:46 CHIEF COMPLAINT: Chief Complaint: Low back and left lower extremity pain HISTORY OF PRESENT ILLNESS: 85-year-old female presents with history of pain low back left lower extremity for many years worse over the past 2 to 3 weeks without any specific injury or accident she is aware of. Reports worse with walking standing changing position especially getting up from a seated position patient reports no loss of motor function but significant fatigability of the left lower extremity with activity. Patient rates her disability rating 0-10 10 being the worst is a 10 with him home responsibilities 8 with social activity 1 with self-care and 0 with life support activities. Patient reports is waking her from sleep occasionally but generally is better with sitting or laying down patient reports is not effective bowel bladder control does affect her ability to walk fairly significantly she not use any assistive devices to ambulate. Patient has had physical therapy in the past as well as exercise which he is doing currently and had epidural injection in the for upper back which helped significantly. Patient not had any formal physical therapy recently but is doing some exercise on her own at home. Patient have an MRI scan lumbar spine showing multilevel degenerative changes usually L3-4 L4-5 and L5-S1 with moderate to marked disc space narrowing left foraminal disc bulging resulting mild narrowing of the anterior inferior left neural foramen at L3-4 L4-5 shows left foraminal disc osteophyte formation resulting in moderate narrowing of the inferior portion of the left neuroforamen approaching the inferior surface of the left foraminal L4 nerve root at L5-S1 shows minimal right foraminal disc bulging and moderate left foraminal L5 nerve root encroachment from the inferior portion of the left neural foramen due to disc osteophyte formation. PAST MEDICAL HISTORY: PMH: Hearing loss, hypertension hyperlipidemia, atrial fibrillation, vertigo, art hritis, osteoporosis, fibromyalgia, polio, breast cancer 1984 PREVIOUS SURGERIES: Past Surgical Hx: Bilateral cataract extractions, exploratory laparotomy with appendectomy, hysterectomy, right mastectomy, cholecystectomy, coccygectomy, vulva surgery CURRENT MEDICATIONS: Current Meds: Active Scripts Medications Dose Route/Sig Max Daily Dose Days Date Category Zolpidem Tartrate 5 Mg Tablet 5 Mg PO PRN QHS PRN 05/01/18 Reported Warfarin Sodium 2 Mg Tablet 1 Tab PO DAILY 05/01/18 Reported Vitamin D3 (Cholecalciferol (Vitamin D3)) 1,000 Unit Tablet Unknown Dose PO DAILY 05/01/18 Reported Vitamin B-12 (Cyanocobalamin (Vitamin B-12)) 1,000 Mcg Tablet 1 Tab PO DAILY 05/01/18 Reported Tylenol (Acetaminophen) 325 Mg Tablet 650 Mg PO Q8HRS 05/01/18 Reported Torsemide 20 Mg Tablet 1 Tab PO QODAY 90 05/01/18 Reported Tizanidine Hcl 4 Mg Tablet 2 Mg PO PRN PRN 05/01/18 Reported Sucralfate 1 Gm Tablet 1 Tab PO BID 05/01/18 Reported Propafenone Hcl 150 Mg Tablet 150 Mg PO TID 05/01/18 Reported Praluent Pen (Alirocumab) 150 Mg/1 Ml Pen.injctr 150 Mg SQ QMONTH 05/01/18 Reported Melatonin 3 Mg Tablet 10 Mg PO QHS 05/01/18 Reported Losartan Potassium 50 Mg Tablet 50 Mg PO DAILY 05/01/18 Reported Diflunisal 500 Mg Tablet 1,000 Mg PO 90 05/01/18 Reported Carvedilol (Carvedilol) 6.25 Mg Tablet 1 Tab PO BID 90 05/01/18 Reported ALLERGIES; Allergies: Coded Allergies: ezetimibe (Verified Allergy, Intermediate, 11/21/19) fexofenadine (Verified Allergy, Intermediate, 11/21/19) gabapentin (Verified Allergy, Intermediate, 11/21/19) tramadol (Verified Allergy, Intermediate, 11/21/19) prednisone (Verified Allergy, Unknown, 11/21/19) Uncoded Allergies: DICLOANCE (Allergy, Unknown, 04/30/18) FAMILY HISTORY: Family Hx: Heart disease and cancers SOCIAL HISTORY: Social Hx: Patient drinks alcohol 1 glass of wine occasionally does not smoke does not use any illegal illicit recreational drugs is lives locally in [facility] is currently retired REVIEW OF SYSTEMS: ROS: Positive for those items mentioned in history of present illness, all systems are reviewed, otherwise negative, is complete full and well-documented on patient's chart PHYSICAL EXAM: VS: Blood pressure is 160/72 pulse 76 respiration 16 temperature is 90.4 F height is 5 foot weight is 146 pounds PE: PHYSICAL EXAMINATION: GENERAL: The patient is awake, alert, oriented, appropriate, very pleasant demeanor HEENT: Shows normocephalic, atraumatic. Extraocular movements are intact and symmetrical. Oral cavity: Mucous membranes moist and pink. Dentition is intact. NECK: Shows anterior throat supple without palpable lymphadenopathy noted. Swallow reflex symmetrical. CHEST: Shows normal on inspection. Breath sounds are clear bilaterally, no rales rhonchi or wheezes, obese. HEART: Shows S1, S2 clear. No murmurs auscultated. ABDOMEN: Soft, nontender, nondistended. No palpable organomegaly is noted. No rebound or guarding demonstrated. BACK: Shows spine grossly in the midline. Normal-appearing cervical lordotic curvature. There is increased thoracic kyphosis, some minor flattening of the lumbar lordotic curvature. Lumbar paraspinous muscles show symmetrical on inspection, on palpation shows some moderate tenderness diffusely throughout the upper, middle and lower distribution of the paraspinous muscles bilaterally without specific trigger points, without radiation of pain. The patient has good rotational motion of the lumbar spine, both laterally as well as extension and flexion without significant difficulty. No tenderness over the spinous processes, sacrum or sacroiliac regions. EXTREMITIES: Lower extremities show deep tendon reflexes 2+ in the patellar and tendo calcaneus tendons. Motor exam is 5 on a scale of 5 with right dorsiflexion, extension, quadriceps and hamstring flexion and 4/5 on the left. Peripheral pulses are 1+ posterior tibial. No peripheral edema is noted bilaterally. Lower extremities are warm and dry to touch, equal in color and appearance. Straight leg raise noted to be negative on the right, left side is mildly positive at approximately 35 degrees decreased with knee flexion. Gaenslen's and Lucas's maneuvers are negative bilaterally. The patient is able to stand, stand on her toes but loses balance quickly with putting all of her weight on her left leg. Patient walks with a favoring gait favoring the left lower extremity not using any assistive devices.. SKIN: Shows warm and dry, good turgor. No edema. No sores, rashes or bruising throughout. IMPRESSION: Impression: 85-year-old female with long history of low back and left lower extremity pain worse over the past few weeks. MRI scan lumbar spine as noted Arthritis Hypertension Atrial fibrillation with anticoagulation therapy History of right breast cancer Plan: Options were discussed with the patient and her sister who accompanied her to her visit today including conservative medical management physical therapies interventional techniques. Patient would like to pursue interventional techniques we discussed a lumbar epidural steroid just using description as well as anatomical models to describe the procedure. We will first wait for clearance from her chocolate maker to hold her Coumadin for 5 days with the PT and INR pending. If deemed safe and appropriate will have her hold his PT and INR pending and will plan on lumbar epidural steroid injection on her return. In the meantime we will try Medrol Dosepak patient was given instructions will side effects be aware with the medication and will follow-up as scheduled. MAY LOBATO MD Jul 16, 2020 12:55
== END | disposition home or self-care (01) ==
LOC: PNCL 11:21
PROVIDERS: ATTEND Anesthesiology
DX: M54.5 Low back pain (principal); M48.061 Spinal stenosis, lumbar region without neurogenic claudication; M79.605 Pain in left leg; I10 Essential (primary) hypertension; E78.5 Hyperlipidemia, unspecified; I48.91 Unspecified atrial fibrillation; M19.90 Unspecified osteoarthritis, unspecified site; H91.8X9 Other specified hearing loss, unspecified ear; Z85.3 Personal history of malignant neoplasm of breast; Z98.890 Other specified postprocedural states; Z88.8 Allergy status to other drugs, medicaments and biological substances; Z79.899 Other long term (current) drug therapy
CPT/HCPCS: G0463

== ENCOUNTER → 2020-08-07 | Outpatient (CLI) | payer MEDICARE ==
[~2020-08-07] MED LIST changes: +IOHEXOL 180 MG/ML 10 ML VIAL. ONE; +methylPREDNISolone ACETATE 40 MG/ML VIAL. ONE; +methylPREDNISolone ACETATE 80 MG/ML VIAL. ONE
--- NOTE | 2020-08-07 11:28 | PDOC ---
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 Patient reports that she still has significant pain in the low back and in the left lower extremity as was previously posterior gluteus posterior thigh posterior lateral calf patient reports is worse with walking standing changing positions rates as a 10 on scale 10 is worse over the past week 8 on average and 8 its least patient reports no new motor or sensory deficits patient reports still wakes her from sleep at night worse with activity as well as trying to get comfortable describes the pain is unbearable in the low back tingling and burning in the leg, left side sharp and dull alternating also tight and shooting pain. Patient did try Medrol Dosepak which caused some nausea and she discontinued it after the first day. Patient reports no new motor or sensory deficits no new bowel or bladder incontinence or other complaints. Physical Exam: VS: Blood pressure is 152/70 pulse 68 respirations 18 temperature 98.6 F height is 5 foot weight is 145 pounds PE: PHYSICAL EXAMINATION: GENERAL: The patient is awake, alert, oriented, appropriate, very pleasant demeanor, patient accompanied by her daughter HEENT: Shows normocephalic, atraumatic. Extraocular movements are intact and symmetrical. Oral cavity: Mucous membranes moist and pink. NECK: Shows anterior throat supple without palpable lymphadenopathy noted. Swallow reflex symmetrical. CHEST: Shows normal on inspection. Breath sounds are clear bilaterally, no rales rhonchi or wheezes. HEART: Shows S1, S2 clear. No murmurs auscultated. ABDOMEN: Soft, nontender, nondistended, obese. No palpable organomegaly is noted. No rebound or guarding demonstrated. BACK: Shows spine grossly in the midline. Normal-appearing cervical lordotic curvature. There is slightly increased thoracic kyphosis, some minor flattening of the lumbar lordotic curvature. Lumbar paraspinous muscles show symmetrical on inspection, on palpation shows some moderate tenderness diffusely throughout the upper, middle and lower distribution of the paraspinous muscles bilaterally without specific trigger points, without radiation of pain. The patient has good rotational motion of the lumbar spine, both laterally as well as extension and flexion without significant difficulty. No tenderness over the spinous processes, sacrum or sacroiliac regions. EXTREMITIES: Lower extremities show deep tendon reflexes 2+ in the patellar and tendo calcaneus tendons. Motor exam is 5 on a scale of 5 with right dorsiflexion, extension, quadriceps and hamstring flexion and 4/5 on the left. Peripheral pulses are 1+ posterior tibial. No peripheral edema is noted bilaterally. Lower extremities are warm and dry to touch, equal in color and appearance. The patient is able to stand, uses her walker to ambulate and has a slight favoring gait favoring the left lower extremity. SKIN: Shows warm and dry, good turgor. No edema. No sores, rashes or bruising throughout. Procedure: Procedure: Options were discussed with the patient. Patient will chart was reviewed and her current medication regimen updated, as well as current review of systems updated today. We will proceed with a lumbar epidural steroid injection today with fluoroscopic guidance. Risks were discussed including but not limited to: Bleeding, infection, possibility of epidural hematoma and subsequent neurological compromise, dural puncture, headaches, spinal cord and/or nerve d amage, side effects of steroid medication, and poor results regarding pain control. Patient understands wished to proceed. Patient will return to clinic in approximately 3 weeks for follow-up was counseled as to return appointment activity level and side effects to be aware of. Patient will restart her Coumadin later tonight and tentatively hold this 6 days prior to the next radha ointment unless pain is significantly reduced. Patient understands and agrees. Medication Injected: Med Injected: Procedure is lumbar epidural steroid injection under local anesthetic using sterile prep and drape at the L5-S1 level using C-arm fluoroscopic guidance in both AP and lateral views medications injected is on a120 mg Depo-Medrol + 10 mL preservative-free normal saline and 2 mL contrast- condition at discharge is stable patient tolerated procedure well had no complications. Condition at Discharge: Condition at Discharge: Condition at discharge is stable patient tolerated procedure well had no immediate complications. MAY LOBATO MD Aug 07, 2020 11:28
== END ==
LOC: PNCL 10:26
PROVIDERS: ATTEND Anesthesiology
DX: M51.16 Intervertebral disc disorders with radiculopathy, lumbar region (principal); M48.061 Spinal stenosis, lumbar region without neurogenic claudication; I10 Essential (primary) hypertension; E78.5 Hyperlipidemia, unspecified; Z88.8 Allergy status to other drugs, medicaments and biological substances; Z79.899 Other long term (current) drug therapy
CPT/HCPCS: 62323; J1030; J1040; Q9965

== ENCOUNTER → 2020-08-28 | Outpatient (CLI) | payer MEDICARE ==
[2020-08-07 10:41] LABS: PROTHROMBIN TIME PATIENT 12.4 SEC (11.7-14.0)
[~2020-08-28] MED LIST changes: -IOHEXOL 180 MG/ML 10 ML VIAL. ONE; -methylPREDNISolone ACETATE 40 MG/ML VIAL. ONE; -methylPREDNISolone ACETATE 80 MG/ML VIAL. ONE
[2020-08-28 10:44] LABS: PROTHROMBIN TIME PATIENT 12.5 SEC (11.7-14.0)
== END | disposition home or self-care (01) ==
LOC: LAB 10:07
PROVIDERS: ATTEND Anesthesiology
DX: Z79.01 Long term (current) use of anticoagulants (principal); I48.91 Unspecified atrial fibrillation; K21.9 Gastro-esophageal reflux disease without esophagitis; G47.30 Sleep apnea, unspecified; M19.90 Unspecified osteoarthritis, unspecified site; E66.9 Obesity, unspecified; Z79.899 Other long term (current) drug therapy; Z98.890 Other specified postprocedural states; Z90.710 Acquired absence of both cervix and uterus; Z85.3 Personal history of malignant neoplasm of breast; Z90.49 Acquired absence of other specified parts of digestive tract; Z88.1 Allergy status to other antibiotic agents; Z88.8 Allergy status to other drugs, medicaments and biological substances
CPT/HCPCS: 36415; 85610

== ENCOUNTER → 2020-08-28 | Outpatient (CLI) | payer MEDICARE ==
[~2020-08-28] MED LIST changes: +IOHEXOL 180 MG/ML 10 ML VIAL. ONE; +methylPREDNISolone ACETATE 40 MG/ML VIAL. ONE; +methylPREDNISolone ACETATE 80 MG/ML VIAL. ONE
--- NOTE | 2020-08-28 11:56 | PDOC ---
Progress Note - Pain Clinic Date of Service: DOS: DATE: 08/28/20 TIME: 11:53 Diagnosis: Dx: Lumbar radiculopathy with lumbar degenerative disc disease and lumbar spinal stenosis History or Present Illness: HPI: 85-year-old female returns follow-up status post lumbar epidural steroid traction x1. Patient reports about 50% improvement lasting for about 1 month the pain is returning now in the lower extremities left leg is doing much better but still some pain in the low back itself bilaterally. Patient reports is a 10 on scale 10 is worse over the past week 8 on average 5 its least is a 5 today. Patient ports that sharp and aching, unbearable at times worse with riding in her car and standing. Patient reports no new motor or sensory deficits no new bowel or bladder incontinence or other complaints reports it does awaken her from sleep at least once a night most nights. Physical Exam: VS: Blood pressure is 143/74 pulse 61 respiration 16 temperature is 98.7 F height is 5 foot weight is 143 pounds PE: PHYSICAL EXAMINATION: GENERAL: The patient is awake, alert, oriented, appropriate, very pleasant demeanor HEENT: Shows normocephalic, atraumatic. Extraocular movements are intact and symmetrical. Oral cavity: Mucous membranes moist and pink. NECK: Shows anterior throat supple without palpable lymphadenopathy noted. Swallow reflex symmetrical. CHEST: Shows normal on inspection. Breath sounds are clear bilaterally, no rales rhonchi wheezes auscultated. HEART: Shows S1, S2 clear. No murmurs auscultated. ABDOMEN: Soft, nontender, nondistended, obese. No palpable organomegaly is noted. No rebound or guarding demonstrated. BACK: Shows spine grossly in the midline. Normal-appearing cervical lordotic curvature. There is slightly increased thoracic kyphosis, some minor flattening of the lumbar lordotic curvature. Lumbar paraspinous muscles show symmetrical on inspection, on palpation shows some moderate tenderness diffusely throughout the upper, middle and lower distribution of the paraspinous muscles without specific trigger points, without radiation of pain. The patient has good rotational motion of the lumbar spine, both laterally as well as extension and flexion without significant difficulty. No tenderness over the spinous processes, sacrum or sacroiliac regions. EXTREMITIES: Lower extremities show deep tendon reflexes 2+ in the patellar and tendo calcaneus tendons. Motor exam is 5 on a scale of 5 with right dorsiflexion, extension, quadriceps and hamstring flexion and 4/5 on the left. Peripheral pulses are 1+ posterior tibial. [] peripheral edema is noted bilaterally. Lower extremities are warm and dry to touch, equal in color and appearance. SKIN: Shows warm and dry, good turgor. No edema. No sores, rashes or bruising throughout. Procedure: Procedure: Options were discussed with the patient. Patient chart was reviewed as her current medication regimen updated current review of systems updated today as well. We will proceed with a second in the series lumbar epidural steroid injection today with fluoroscopic guidance. Risks were discussed including but not limited to: Bleeding, infection, possibility of epidural hematoma and subsequent neurological compromise, dural puncture, headaches, spinal cord and/or nerve damage, side effects of steroid medication, and poor results regarding pain control. Patient understands wished to proceed. She will return to clinic in approximate 2 weeks for follow-up, was counseled as to return radha ointment activity level and side effects to be aware of. Medication Injected: Med Injected: Procedure is lumbar epidural steroid injection under local anesthetic using sterile prep and drape at the L5-S1 level using C-arm fluoroscopic guidance in both AP and lateral views medications injected is 120 mg Depo-Medrol + 10 mL preservative-free normal saline and 2 mL contrast- condition at discharge is stable patient tolerated procedure well had no complications. Condition at Discharge: Condition at Discharge: Condition at discharge is stable, patient tolerated procedure well and had no complications. MAY LOBATO MD Aug 28, 2020 11:56
== END | disposition home or self-care (01) ==
LOC: PNCL 10:38
PROVIDERS: ATTEND Anesthesiology
DX: M51.16 Intervertebral disc disorders with radiculopathy, lumbar region (principal); M48.061 Spinal stenosis, lumbar region without neurogenic claudication; I48.91 Unspecified atrial fibrillation; K21.9 Gastro-esophageal reflux disease without esophagitis; E66.9 Obesity, unspecified; G47.30 Sleep apnea, unspecified; Z90.710 Acquired absence of both cervix and uterus; Z98.890 Other specified postprocedural states; Z90.49 Acquired absence of other specified parts of digestive tract; Z85.3 Personal history of malignant neoplasm of breast; Z79.899 Other long term (current) drug therapy; Z88.1 Allergy status to other antibiotic agents; Z88.8 Allergy status to other drugs, medicaments and biological substances
CPT/HCPCS: 62323; J1030; J1040; Q9965

== ENCOUNTER → 2020-09-26 | Outpatient (CLI) | payer MEDICARE ==
[~2020-09-26] MED LIST changes: -IOHEXOL 180 MG/ML 10 ML VIAL. ONE; -methylPREDNISolone ACETATE 40 MG/ML VIAL. ONE; -methylPREDNISolone ACETATE 80 MG/ML VIAL. ONE
[2020-09-26 08:52] LABS: PROTHROMBIN TIME PATIENT 12.8 SEC (11.7-14.0)
== END | disposition home or self-care (01) ==
LOC: LAB 08:12
PROVIDERS: ATTEND Anesthesiology
DX: Z01.812 Encounter for preprocedural laboratory examination (principal); Z79.01 Long term (current) use of anticoagulants
CPT/HCPCS: 36415; 85610

== ENCOUNTER → 2020-09-26 | Outpatient (CLI) | payer MEDICARE ==
[~2020-09-26] MED LIST changes: +IOHEXOL 180 MG/ML 10 ML VIAL. ONE; +methylPREDNISolone ACETATE 40 MG/ML VIAL. ONE; +methylPREDNISolone ACETATE 80 MG/ML VIAL. ONE
--- NOTE | 2020-09-26 09:38 | PDOC ---
Progress Note - Pain Clinic Date of Service: DOS: DATE: 09/26/20 TIME: 09:35 Diagnosis: Dx: Lumbar radiculopathy with lumbar degenerative disease and lumbar spinal stenosis History or Present Illness: HPI: 85-year-old female returns follow-up status post lumbar epidural steroid injections x2. Patient reports only minimal decrease in pain after last injection initially about 75% improvement for the first 3 weeks but the pain is returning now in the low back and left lower extremity as it was previously posterior gluteus posterior thigh posterior calf on the left side patient ports worse with walking standing changing position especially getting up from a seated position and changing positions patient ports a 10 on scale 10 is worse over the past week 8 on average 8 its least is an 8 today patient reports becoming more constant and unbearable in the low back and left leg. Patient ports also pain the base the neck and upper shoulders and back she reports she is sleeping on a heating pad which does decrease the pain significantly but is certain she gets up and within a few minutes pain returns patient reports no new motor or sensory deficits no new bowel or bladder incontinence or other complaints. Patient's INR today is 1.0 and PT is 12.5 Physical Exam: VS: Blood pressure is 146/45 pulse 66 respirations 18 temperature 90.6 F height is 5 foot weight 145 pounds PE: PHYSICAL EXAMINATION: GENERAL: The patient is awake, alert, oriented, appropriate, very pleasant demeanor HEENT: Shows normocephalic, atraumatic. Extraocular movements are intact and symmetrical. NECK: Shows anterior throat supple without palpable lymphadenopathy noted. Swallow reflex symmetrical. CHEST: Shows normal on inspection. Breath sounds are clear bilaterally. HEART: Shows S1, S2 clear. No murmurs auscultated. ABDOMEN: Soft, nontender, nondistended, obese. No palpable organomegaly is noted. BACK: Shows spine grossly in the midline. Normal-appearing cervical lordotic curvature. There is increased thoracic kyphosis, some minor flattening of the lumbar lordotic curvature. Lumbar paraspinous muscles show symmetrical on in spection, on palpation shows some moderate tenderness diffusely throughout the upper, middle and lower distribution of the paraspinous muscles, but without specific trigger points, without radiation of pain. The patient has good rotational motion of the lumbar spine, both laterally as well as extension and flexion without significant difficulty. No tenderness over the spinous pro cesses, sacrum or sacroiliac regions. EXTREMITIES: Lower extremities show deep tendon reflexes [] in the patellar and tendo calcaneus tendons. Motor exam is 5 on a scale of 5 with right dorsiflexion, extension, quadriceps and hamstring flexion and 4/5 on the left. Peripheral pulses are 1+ posterior tibial. No peripheral edema is noted bilaterally. Lower extremities are warm and dry to touch, equal in color and appearance. SKIN: Shows warm and dry, good turgor. No edema. No sores, rashes or bruising throughout. Procedure: Procedure: Options were discussed with the patient. Patient chart reviews her current medication regimen updated current review of systems updated today as well. We will proceed with a third in the series lumbar epidural steroid injection today with fluoroscopic guidance. Risks were discussed including but not limited to: Bleeding, infection, possibility of epidural hematoma and subsequent neurological compromise, dural puncture, headaches, spinal cord and/or nerve damage, side effects of steroid medication, and poor results regarding pain control. Patient understands wished to proceed. Patient will return to clinic in approximate 2 weeks for follow-up was counseled as to return appointment activity level and side effects to be aware of. Medication Injected: Med Injected: Procedure is lumbar epidural steroid injection under local anesthetic using sterile prep and drape at the L5-S1 level using C-arm fluoroscopic guidance in both AP and lateral views medications injected is 120 mg Depo-Medrol + 10 mL preservative-free normal saline and 2 mL contrast- condition at discharge is stable patient tolerated procedure well had no complications. Condition at Discharge: Condition at Discharge: Condition at discharge stable, patient tolerated procedure well had no complications. MAY LOBATO MD Sep 26, 2020 09:38
== END | disposition home or self-care (01) ==
LOC: PNCL 08:52
PROVIDERS: ATTEND Anesthesiology
DX: M51.16 Intervertebral disc disorders with radiculopathy, lumbar region (principal); M48.061 Spinal stenosis, lumbar region without neurogenic claudication; Z88.8 Allergy status to other drugs, medicaments and biological substances; Z98.890 Other specified postprocedural states
CPT/HCPCS: 62323; J1030; J1040; Q9965

== ENCOUNTER → 2021-01-21 | Outpatient (CLI) | payer MEDICARE ==
[~2021-01-21] MED LIST changes: -IOHEXOL 180 MG/ML 10 ML VIAL. ONE; -methylPREDNISolone ACETATE 40 MG/ML VIAL. ONE; -methylPREDNISolone ACETATE 80 MG/ML VIAL. ONE
--- NOTE | 2021-01-21 08:49 | PDOC ---
Progress Note - Pain Clinic Date of Service: DOS: DATE: 01/21/21 TIME: 08:46 Diagnosis: Dx: Lumbar radiculopathy with lumbar degenerative disease lumbar spinal stenosis History or Present Illness: HPI: 85-year-old female returns for follow-up status post lumbar epidural steroid injections most recently September 2020. Patient gail did very well with this with about a 75% improvement but the back is still doing well but she is having radicular pain now radiating to her left posterior gluteus and lateral thigh patient reports it can be sore to the touch on the lateral thigh as well as in the posterior gluteus very difficult to walk because of the pain initially she was doing much better with doing walking distances household activities and travel with greater ease sleeping better at night generally is not awaken her from sleep but standing walking changing positions even sitting for prolonged periods begins to hurt in the left posterior gluteus and lateral thigh patient reports is a 10 on scale 10 is worst over the past week 10 on average 8 its least is a 10 today. Patient ports is aching and dull sore stabbing can be severe and unbearable off and on better with laying down again worse with weightbearing and even sitting. Patient reports no new motor or sensory deficits no new bowel or bladder incontinence patient reports her primary care physician tried some hydrocodone which did not decrease the pain also get some new films CT scan of the lumbar spine we went over this with she and her sister who accompanied her visit today showing displaces with narrowing and asymmetric [id number] contact at L2-3 with narrowing most conspicuously at L2-3 and L4-5 with moderate to space narrowing present at other levels as well. Patient reports no new motor or sensory deficits no new bowel or bladder incontinence. Physical Exam: VS: Blood pressure 204/86 pulse 59 respirations 18 temperature 98.2 F weight is 146 pounds PE: PHYSICAL EXAMINATION: GENERAL: The patient is awake, alert, oriented, appropriate, very pleasant demeanor, accompanied by her sister HEENT: Shows normocephalic, atraumatic. Extraocular movements are intact and symmetrical. Oral cavity: Mucous membranes moist and pink. Dentition is intact. NECK: Shows anterior throat supple without palpable lymphadenopathy noted. Swallow reflex symmetrical. CHEST: Shows normal on inspection. Breath sounds are clear bilaterally, distant but no rales or rhonchi. HEART: Shows S1, S2 clear. No murmurs auscultated. ABDOMEN: Soft, nontender, nondistended, obese. No palpable organomegaly is noted. No rebound or guarding demonstrated. BACK: Shows spine grossly in the midline. Normal-appearing cervical lordotic curvature. There is slightly increased thoracic kyphosis, some minor flattening of the lumbar lordotic curvature. Lumbar paraspinous muscles show symmetrical on inspection, on palpation shows some moderate tenderness diffusely throughout the upper, middle and lower distribution of the paraspinous muscles without specific trigger points, without radiation of pain. The patient has good rotational motion of the lumbar spine, both laterally as well as extension and flexion without significant difficulty. No tenderness over the spinous processes, sacrum or sacroiliac regions. EXTREMITIES: Lower extremities show deep tendon reflexes 2+ in the patellar and tendo calcaneus tendons. Motor exam is 5 on a scale of 5 with right dorsiflexion, extension, quadriceps and hamstring flexion and 4/5 on the left. Peripheral pulses are 1+ posterior tibial. No peripheral edema is noted bilaterally. SKIN: Shows warm and dry, good turgor. No edema. No sores, rashes or bruising throughout. Procedure: Procedure: Options discussed with the patient. Patient will chart reviews her current medication regimen updated current review of systems updated today as well. We will check with patient's primary care physician to hold her Coumadin for 5 days prior to interventional technique with PT and INR pending. Patient would continue with stretching strength exercise the meantime also will try Medrol Dosepak patient was given prescription with instructions and side effects to be aware of as well. Patient will follow up for lumbar epidural steroid injection with PT and INR pending. Medication Injected: Med Injected: None Condition at Discharge: Condition at Discharge: Condition at discharge is stable. MAY LOBATO MD Jan 21, 2021 08:49
== END | disposition home or self-care (01) ==
LOC: PNCL 08:12
PROVIDERS: ATTEND Anesthesiology
DX: M51.16 Intervertebral disc disorders with radiculopathy, lumbar region (principal); M48.061 Spinal stenosis, lumbar region without neurogenic claudication; I48.91 Unspecified atrial fibrillation; G47.30 Sleep apnea, unspecified; E66.9 Obesity, unspecified; K21.9 Gastro-esophageal reflux disease without esophagitis; M19.90 Unspecified osteoarthritis, unspecified site; Z90.710 Acquired absence of both cervix and uterus; Z98.890 Other specified postprocedural states; Z79.899 Other long term (current) drug therapy; Z79.01 Long term (current) use of anticoagulants; Z72.89 Other problems related to lifestyle; Z88.1 Allergy status to other antibiotic agents; Z88.8 Allergy status to other drugs, medicaments and biological substances
CPT/HCPCS: G0463

== ENCOUNTER → 2021-01-29 | Outpatient (CLI) | payer MEDICARE ==
[~2021-01-29] MED LIST changes: +IOHEXOL 180 MG/ML 10 ML VIAL. ONE; +METH-561 PO; +methylPREDNISolone ACETATE 40 MG/ML VIAL. ONE; +methylPREDNISolone ACETATE 80 MG/ML VIAL. ONE
--- NOTE | 2021-01-29 08:53 | PDOC ---
Progress Note - Pain Clinic Date of Service: DOS: DATE: 01/29/21 TIME: 08:50 Diagnosis: Dx: Lumbar radiculopathy with lumbar degenerative disc disease and lumbar spinal stenosis History or Present Illness: HPI: 85-year-old female returns to follow-up status post lumbar epidural steroid injections most recently seen September 26, 2020. Patient did very well about 75% improvement after the injection patient has been on Coumadin and we had clearance to have her hold it for 5 days she has done that now we tried a Medrol Dosepak in the meantime which was helpful she reports while she was taking the medicine but the pain is returned in the low back left lower extremity after the medication was completed. Patient reports pain down the low back left posterior gluteus posterior thigh occasionally to the calf mostly in the back and the leg superiorly patient reports is a 10 on scale 10 is worse over the past week 8 on average 7 its least is an 8 today. Patient scribes aching and dull shooting burning cramping at times and stabbing in the back can be severe worse with sitting for prolonged periods walking standing better with laying down does generally not awaken her from sleep at night. Patient reports no new motor or sensory deficits no new bowel or bladder incontinence. Patient's PT today is 1.1. Physical Exam: VS: Blood pressure is 126/60 pulse 60 respirations 18 temperature 90.2 F weight is 142 pounds PE: PHYSICAL EXAMINATION: GENERAL: The patient is awake, alert, oriented, appropriate, very pleasant demeanor HEENT: Shows normocephalic, atraumatic. Extraocular movements are intact and symmetrical. Oral cavity: Mucous membranes moist and pink. NECK: Shows anterior throat supple without palpable lymphadenopathy noted. Sw allow reflex symmetrical. CHEST: Shows normal on inspection. Breath sounds are clear bilaterally, distant but no rales or rhonchi. HEART: Shows S1, S2 clear. No murmurs auscultated. ABDOMEN: Soft, nontender, nondistended, obese. No palpable organomegaly is noted. No rebound or guarding demonstrated. BACK: Shows spine grossly in the midline. Normal-appearing cervical lordotic c urvature. There is slightly increased thoracic kyphosis, some minor flattening of the lumbar lordotic curvature. Lumbar paraspinous muscles show symmetrical on inspection, on palpation shows some moderate tenderness diffusely throughout the upper, middle and lower distribution of the paraspinous muscles, but without specific trigger points, without radiation of pain. The patient has good rotational motion of the lumbar spine, both laterally as well as extension and flexion without significant difficulty. EXTREMITIES: Lower extremities show deep tendon reflexes 2+ in the patellar and tendo calcaneus tendons. Motor exam is 4 on a scale of 5 with right dorsiflexion, extension, quadriceps and hamstring flexion and 5/5 on the left. Peripheral pulses are 1+ posterior tibial. No peripheral edema is noted bilaterally. Lower extremities are warm and dry to touch, equal in color and ap pearance. SKIN: Shows warm and dry, good turgor. No edema. No sores, rashes or bruising throughout. Procedure: Procedure: Options were discussed with the patient. Patient chart reviews her current medication regimen updated current review of systems updated today as well. We will proceed with a lumbar epidural steroid traction as the first in this series with fluoroscopic guidance. Risks were discussed including but not limited to: Bleeding, infection, possibility of epidural hematoma and subsequent neurological compromise, dural puncture, headaches, spinal cord and/or nerve damage, side effects of steroid medication, and poor results regarding pain control. Patient understands and wished to proceed. Patient will return to the clinic in approximate 2 weeks for follow-up, was counseled as return appointment activity level and side effects beware. Patient will restart her Coumadin January 31, 2020, tomorrow. Medication Injected: Med Injected: Procedure is lumbar epidural steroid injection under local anesthetic using sterile prep and drape at the L5-S1 level using C-arm fluoroscopic guidance in both AP and lateral views medications injected is 120 mg Depo-Medrol + 10 mL preservative-free normal saline and 2 mL contrast- condition at discharge is stable patient tolerated procedure well had no complications. Condition at Discharge: Condition at Discharge: Condition at discharge stable, patient already procedure well and had no complications. MAY LOBATO MD Jan 29, 2021 08:53
--- NOTE | 2021-01-29 08:54 | PDOC4 ---
PROCEDURE Procedure Patient was consented for lumbar epidural steroid injection. Risks were dis cussed including but not limited to: Bleeding, infection, possibility of epidural hematoma and subsequent neurological compromise, dural puncture, headaches, spinal cord and/or nerve damage, side effects of steroid medication, and poor results regarding pain control. Patient understands and wished to proceed. Procedure is lumbar epidural steroid injection under local anesthetic using sterile prep and drape at the L5-S1 level using C-arm fluoroscopic guidance in both AP and lateral views medications injected is 120 mg Depo-Medrol + 10 mL preservative-free normal saline and 2 mL contrast- condition at discharge is stable patient tolerated procedure well had no complications. MAY LOBATO MD Jan 29, 2021 08:54
== END | disposition home or self-care (01) ==
LOC: PNCL 07:59
PROVIDERS: ATTEND Anesthesiology
DX: M51.16 Intervertebral disc disorders with radiculopathy, lumbar region (principal); M48.061 Spinal stenosis, lumbar region without neurogenic claudication; K21.9 Gastro-esophageal reflux disease without esophagitis; M19.90 Unspecified osteoarthritis, unspecified site; I48.91 Unspecified atrial fibrillation; G47.30 Sleep apnea, unspecified; E66.9 Obesity, unspecified; Z90.49 Acquired absence of other specified parts of digestive tract; Z90.710 Acquired absence of both cervix and uterus; Z98.890 Other specified postprocedural states; Z85.3 Personal history of malignant neoplasm of breast; Z79.899 Other long term (current) drug therapy; Z72.89 Other problems related to lifestyle; Z88.8 Allergy status to other drugs, medicaments and biological substances
CPT/HCPCS: 36415; 62323; 85610; J1030; J1040; Q9965

== ENCOUNTER → 2021-01-29 | Outpatient (CLI) | payer MEDICARE ==
[~2021-01-29] MED LIST changes: -IOHEXOL 180 MG/ML 10 ML VIAL. ONE; -methylPREDNISolone ACETATE 40 MG/ML VIAL. ONE; -methylPREDNISolone ACETATE 80 MG/ML VIAL. ONE
[2021-01-29 08:32] LABS: PROTHROMBIN TIME PATIENT 13.4 SEC (11.7-14.0)
== END | disposition home or self-care (01) ==
LOC: LAB 07:47
PROVIDERS: ATTEND Anesthesiology
DX: M51.16 Intervertebral disc disorders with radiculopathy, lumbar region (principal); Z79.01 Long term (current) use of anticoagulants
CPT/HCPCS: 36415; 62323; 85610

== ENCOUNTER → 2021-02-19 | Outpatient (CLI) | payer MEDICARE ==
[~2021-02-19] MED LIST changes: +IOHEXOL 180 MG/ML 10 ML VIAL. ONE; +methylPREDNISolone ACETATE 40 MG/ML VIAL. ONE; +methylPREDNISolone ACETATE 80 MG/ML VIAL. ONE
[2021-02-19 08:28] LABS: PROTHROMBIN TIME PATIENT 12.6 SEC (11.7-14.0)
--- NOTE | 2021-02-19 08:55 | PDOC ---
Progress Note - Pain Clinic Date of Service: DOS: DATE: 02/19/21 TIME: 08:52 Diagnosis: Dx: Lumbar radiculopathy with lumbar degenerative disease and lumbar spinal stenosis History or Present Illness: HPI: 86-year-old female returns for follow-up status post lumbar epidural steroid action x1. Patient reports about 40% improvement after the last injection with pain returning in the low back and left lower extremity posterior gluteus posterior thigh and calf as well as the lateral thigh anterior thigh patient reports is a 9 on scale 10 is worst over the past week 7 on average 7 its least is a 7 today. Patient reports is worse when walking or sitting better with lying down generally is not awaken her from sleep at night patient reports no new motor or sensory deficits initially she would do much better with distance walking doing household activity as well as travel with greater ease and comfort now the pain is returned fairly significantly in the low back and left leg. Patient reports no new changes no other complaints. Physical Exam: VS: Blood pressure is 151/70 pulse 51 respirations are 18 temperature is 98.0 F hei ght is 5 foot weight is 142 pounds PE: PHYSICAL EXAMINATION: GENERAL: The patient is awake, alert, oriented, appropriate, very pleasant demeanor HEENT: Shows normocephalic, atraumatic. Extraocular movements are intact and symmetrical. Oral cavity: Mucous membranes moist and pink. NECK: Shows anterior throat supple without palpable lymphadenopathy noted. Swallow reflex symmetrical. CHEST: Shows normal on inspection. Breath sounds are clear bilaterally, distant but no rales or rhonchi. HEART: Shows S1, S2 clear. No murmurs auscultated. ABDOMEN: Soft, nontender, nondistended, obese. No palpable organomegaly is noted. No rebound or guarding demonstrated. BACK: Shows spine grossly in the midline. Normal-appearing cervical lordotic curvature. There is slightly increased thoracic kyphosis, some minor flattening of the lumbar lordotic curvature. Lumbar paraspinous muscles show symmetrical on inspection, on palpation shows some moderate tenderness diffusely throughout the upper, middle and lower distribution of the paraspinous muscles without specific trigger points, without radiation of pain. The patient has good rotational motion of the lumbar spine, both laterally as well as extension and flexion without difficulty. EXTREMITIES: Lower extremities show deep tendon reflexes 1+ in the patellar and tendo calcaneus tendons. Motor exam is 5 on a scale of 5 with right dorsiflexion, extension, quadriceps and hamstring flexion and 4/5 on the left. Peripheral pulses are 1+ posterior tibial. No peripheral edema is noted bilaterally. Lower extremities are warm and dry . SKIN: Shows warm and dry, good turgor. No edema. No sores, rashes or bruising throughout. Procedure: Procedure: Options were discussed with the patient. Patient chart was viewed as her current medication regimen updated current review of systems updated today as well. We will proceed with a second in the series lumbar epidural steroid ejections today with fluoroscopic guidance. Risks were discussed including but not limited to: Bleeding, infection, possibility of epidural hematoma and subsequent neurological compromise, dural puncture, headaches, spinal cord and/or nerve damage, side effects of steroid medication, and poor results regar ding pain control. Patient understands and wished to proceed. Patient will return to clinic in approximate 2 weeks for follow-up, was counseled as to return appointment activity level and side effects to be aware of. Medication Injected: Med Injected: Procedure is lumbar epidural steroid injection under local anesthetic using sterile prep and drape at the L5-S1 level using C-arm fluoroscopic guidance in both AP and lateral views medications injected is 120 mg Depo-Medrol + 10 mL preservative-free normal saline and 2 mL contrast- condition at discharge is stable patient tolerated procedure well had no complications. Condition at Discharge: Condition at Discharge: Condition at discharge stable, patient already procedure well and had no complications. MAY LOBATO MD February 19, 2021 08:55
--- NOTE | 2021-02-19 08:55 | PDOC4 ---
PROCEDURE Procedure Patient was consented for lumbar epidural steroid injection. Risks were dis cussed including but not limited to: Bleeding, infection, possibility of epidural hematoma and subsequent neurological compromise, dural puncture, headaches, spinal cord and/or nerve damage, side effects of steroid medication, and poor results regarding pain control. Patient understands and wished to proceed. Procedure is lumbar epidural steroid injection under local anesthetic using sterile prep and drape at the L5-S1 level using C-arm fluoroscopic guidance in both AP and lateral views medications injected is 120 mg Depo-Medrol + 10 mL preservative-free normal saline and 2 mL contrast- condition at discharge is stable patient tolerated procedure well had no complications. MAY LOBATO MD February 19, 2021 08:55
== END | disposition home or self-care (01) ==
LOC: PNCL 07:53
PROVIDERS: ATTEND Anesthesiology
DX: M51.16 Intervertebral disc disorders with radiculopathy, lumbar region (principal); M48.061 Spinal stenosis, lumbar region without neurogenic claudication; I48.91 Unspecified atrial fibrillation; G47.30 Sleep apnea, unspecified; K21.9 Gastro-esophageal reflux disease without esophagitis; E66.9 Obesity, unspecified; M19.90 Unspecified osteoarthritis, unspecified site; Z85.3 Personal history of malignant neoplasm of breast; Z90.710 Acquired absence of both cervix and uterus; Z90.49 Acquired absence of other specified parts of digestive tract; Z98.890 Other specified postprocedural states; Z79.899 Other long term (current) drug therapy; Z79.01 Long term (current) use of anticoagulants; Z72.89 Other problems related to lifestyle; Z88.1 Allergy status to other antibiotic agents; Z88.8 Allergy status to other drugs, medicaments and biological substances
CPT/HCPCS: 36415; 62323; 85610; J1030; J1040; Q9965

== ENCOUNTER → 2021-03-12 | Outpatient (CLI) | payer MEDICARE ==
--- NOTE | 2021-03-12 09:39 | PDOC4 ---
PROCEDURE Procedure Patient was consented for lumbar epidural steroid injection. Risks were dis cussed including but not limited to: Bleeding, infection, possibility of epidural hematoma and subsequent neurological compromise, dural puncture, headaches, spinal cord and/or nerve damage, side effects of steroid medication, and poor results regarding pain control. Patient understands and wished to proceed. Procedure is lumbar epidural steroid injection under local anesthetic using sterile prep and drape at the L5-S1 level using C-arm fluoroscopic guidance in both AP and lateral views medications injected is 120 mg Depo-Medrol +10mL preservative-free normal saline and 2 mL contrast- condition at discharge is stable patient tolerated procedure well had no complications. MAY LOBATO MD March 12, 2021 09:39
--- NOTE | 2021-03-12 09:39 | PDOC ---
Progress Note - Pain Clinic Date of Service: DOS: DATE: 03/12/21 TIME: 09:36 Diagnosis: Dx: Lumbar radiculopathy with lumbar degenerative disease and lumbar spinal stenosis History or Present Illness: HPI: 86-year-old female returns for follow-up status post lumbar epidurals or injection x1. Patient reports about 75% improvement for the first 2 weeks now only about 50% improved but still doing better in the low back and left lower extremity patient reports some pain in the left hip as well and some groin pain which is new since last visit worse with walking and standing. Patient reports her pain is a 10 on scale 10 is worst in the last week 5 on average 5 its least is a 5 today patient reports is sharp and dull tight shooting in the left lower extremity mostly the posterior gluteus posterior thigh but some in the calf as well patient reports it can be unbearable at times as he standing for more than 10 to 15 minutes off and on and intensity but worse with walking standing better with lying down generally does not awaken her from sleep at night patient reports no new motor or sensory deficits no new bowel or bladder incontinence or other complaints. INR today is 1.0 Physical Exam: VS: Blood pressure 170/81 pulse 58 respirations 18 temperature 98.1 F weight is 145 pounds PE: PHYSICAL EXAMINATION: GENERAL: The patient is awake, alert, oriented, appropriate, very pleasant demeanor HEENT: Shows normocephalic, atraumatic. Extraocular movements are intact and symmetrical. Oral cavity: Mucous membranes moist and pink. Dentition is intact. NECK: Shows anterior throat supple without palpable lymphadenopathy noted. Swallow reflex symmetrical. CHEST: Shows normal on inspection. Breath sounds are clear bilaterally, no rales rhonchi wheezes auscultated. HEART: Shows S1, S2 clear. No murmurs auscultated. ABDOMEN: Soft, nontender, nondistended, obese. No palpable organomegaly is noted. No rebound or guarding demonstrated. BACK: Shows spine grossly in the midline. Normal-appearing cervical lordotic curvature. There is slightly increased thoracic kyphosis, some minor flattening of the lumbar lordotic curvature. Lumbar paraspinous muscles show symmetrical on inspection, on palpation shows some moderate tenderness diffusely throughout the upper, middle and lower distribution of the paraspinous muscles, but without specific trigger points, without radiation of pain. The patient has good rotational motion of the lumbar spine, both laterally as well as extension and flexion without significant difficulty. EXTREMITIES: Lower extremities show deep tendon reflexes 2+ in the patellar and tendo calcaneus tendons. Motor exam is 5 on a scale of 5 with right dorsiflexion, extension, quadriceps and hamstring flexion and 4/5 on the left. Peripheral pulses are 1+ posterior tibial. No peripheral edema is noted bilaterally. Lower extremities are warm and dry to touch, equal in color and appearance. SKIN: Shows warm and dry, good turgor. No edema. No sores, rashes or bruising throughout. Procedure: Procedure: Options were discussed with the patient. Patient chart was reviewed as her current medication regimen updated current review of systems updated today as well. We will proceed with a lumbar epidural steroid injection today as the second in the series, with fluoroscopic guidance. Risks were discussed including but not limited to: Bleeding, infection, possibility of epidural hematoma and subsequent neurological compromise, dural puncture, headaches, spinal cord and/or nerve damage, side effects of steroid medication, and poor results regarding pain control. Patient understands and wished to proceed. Patient return to the clinic in approximately 3 weeks for follow-up, was counseled as to return appointment activity level and side effects to be aware of. Patient restart Coumadin tomorrow March 13. Medication Injected: Med Injected: Procedure is lumbar epidural steroid injection under local anesthetic using sterile prep and drape at the L5-S1 level using C-arm fluoroscopic guidance in both AP and lateral views medications injected is 120 mg Depo-Medrol +10mL preservative-free normal saline and 2 mL contrast- condition at discharge is stable patient tolerated procedure well had no complications. Condition at Discharge: Condition at Discharge: Condition at discharge stable, patient tolerated the procedure well and had no complications. MAY LOBATO MD March 12, 2021 09:39
== END | disposition home or self-care (01) ==
LOC: PNCL 08:17
PROVIDERS: ATTEND Anesthesiology
DX: M51.16 Intervertebral disc disorders with radiculopathy, lumbar region (principal); M48.061 Spinal stenosis, lumbar region without neurogenic claudication; I48.91 Unspecified atrial fibrillation; G47.30 Sleep apnea, unspecified; E66.9 Obesity, unspecified; K21.9 Gastro-esophageal reflux disease without esophagitis; M19.90 Unspecified osteoarthritis, unspecified site; Z90.49 Acquired absence of other specified parts of digestive tract; Z90.710 Acquired absence of both cervix and uterus; Z98.890 Other specified postprocedural states; Z79.899 Other long term (current) drug therapy; Z88.1 Allergy status to other antibiotic agents; Z88.8 Allergy status to other drugs, medicaments and biological substances; Z72.89 Other problems related to lifestyle
CPT/HCPCS: 36415; 62323; 85610; J1030; J1040; Q9965

== ENCOUNTER → 2021-03-12 | Outpatient (CLI) | payer MEDICARE ==
[~2021-03-12] MED LIST changes: -IOHEXOL 180 MG/ML 10 ML VIAL. ONE; -methylPREDNISolone ACETATE 40 MG/ML VIAL. ONE; -methylPREDNISolone ACETATE 80 MG/ML VIAL. ONE
[2021-03-12 08:24] LABS: PROTHROMBIN TIME PATIENT 13.1 SEC (11.7-14.0)
== END | disposition home or self-care (01) ==
LOC: LAB 07:46
PROVIDERS: ATTEND Anesthesiology
DX: Z79.1 Long term (current) use of non-steroidal anti-inflammatories (NSAID) (principal); M51.16 Intervertebral disc disorders with radiculopathy, lumbar region
CPT/HCPCS: 36415; 62323; 85610

== ENCOUNTER → 2021-04-02 | Outpatient (CLI) | payer MEDICARE ==
[~2021-04-02] MED LIST changes: -DOCU-150 PO; +DOCU-158 PO; +IOHEXOL 180 MG/ML 10 ML VIAL. ONE; +methylPREDNISolone ACETATE 40 MG/ML VIAL. ONE; +methylPREDNISolone ACETATE 80 MG/ML VIAL. ONE
[2021-04-02 08:23] LABS: PROTHROMBIN TIME PATIENT 11.8 SEC (11.7-14.0)
--- NOTE | 2021-04-02 09:47 | PDOC ---
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 Patient reports an 80% improvement for the first 2 weeks and the pain began to return down the low back and left lower extremity some in the hip and groin as well mostly in the low back and left posterior gluteus posterior thigh posterior calf patient reports is radiating less and is more in the thigh patient reports is 10 on scale 10 is worse over the past week for an average/and is a 4 today patient reports when standing or standing in a stationary position is when it is is worse patient reports is better with sitting or laying down does not awaken her from sleep at night describes pain is unbearable at times aching stabbing burning in the back and shooting in the left leg and groin. Patient reports no new motor or sensory deficits no new bowel or bladder incontinence or other complaints. PT is 11.8, INR is 0.9 Physical Exam: VS: Blood pressure is 149/76 pulse 59 respirations 18 temperature 98.2 F height 5 f oot weight is 144 pounds PE: PHYSICAL EXAMINATION: GENERAL: The patient is awake, alert, oriented, appropriate, very pleasant in demeanor HEENT: Shows normocephalic, atraumatic. Extraocular movements are intact and symmetrical. Oral cavity: Mucous membranes moist and pink. Dentition is intact. NECK: Shows anterior throat supple without palpable lymphadenopathy noted. Swallow reflex symmetrical. CHEST: Shows normal on inspection. Breath sounds are clear bilaterally. HEART: Shows S1, S2 clear. No murmurs auscultated. ABDOMEN: Soft, nontender, nondistended, obese. BACK: Shows spine grossly in the midline. Normal-appearing cervical lordotic curvature. There is slightly increased thoracic kyphosis, some minor flattening of the lumbar lordotic curvature. Lumbar paraspinous muscles show symmetrical on inspection, on palpation shows some moderate tenderness diffusely throughout the upper, middle and lower distribution of the paraspinous muscles without specific trigger points, without radiation of pain. The patient has good rotational motion of the lumbar spine, both laterally as well as extension and flexion without significant difficulty. EXTREMITIES: Lower extremities show deep tendon reflexes 2+ in the patellar and tendo calcaneus tendons. Motor exam is 5 on a scale of 5 with right dorsiflexion, extension, quadriceps and hamstring flexion and 4/5 on the left. Peripheral pulses are 1+ posterior tibial. No peripheral edema is noted bilaterally. Lower extremities are warm and dry to touch, equal in color and appearance. Patient does have a positive Lucas's maneuver on the left but not on the right. SKIN: Shows warm and dry, good turgor. No edema. No sores, rashes or bruising throughout. Procedure: Procedure: Options were discussed with the patient. Patient chart reviews her current medication regimen updated current review of systems updated today as well. We will proceed with a second in the series lumbar epidural steroid injection today with fluoroscopic guidance. Risks were discussed including but not limited to: Bleeding, infection, possibility of epidural hematoma and subsequent neurological compromise, dural puncture, headaches, spinal cord and/or nerve damage, side effects of steroid medication, and poor results regarding pain control. Patient understands and wished to proceed. Patient will return to the clinic in approximately 3 weeks for follow-up, was counseled as to return appointment activity level and side effects aware. Patient was her taking her Coumadin again tomorrow April 03, 2021. Medication Injected: Med Injected: Procedure is lumbar epidural steroid injection under local anesthetic using sterile prep and drape at the L5-S1 level using C-arm fluoroscopic guidance in both AP and lateral views medications injected is 120 mg Depo-Medrol +10mL preservative-free normal saline and 2 mL contrast- condition at discharge is stable patient tolerated procedure well had no complications. Condition at Discharge: Condition at Discharge: Condition at discharge stable, patient operative procedure well and had no complications. MAY LOBATO MD Apr 02, 2021 09:47
--- NOTE | 2021-04-02 09:47 | PDOC4 ---
PROCEDURE Procedure Patient was consented for lumbar epidural steroid injection. Risks were dis cussed including but not limited to: Bleeding, infection, possibility of epidural hematoma and subsequent neurological compromise, dural puncture, headaches, spinal cord and/or nerve damage, side effects of steroid medication, and poor results regarding pain control. Patient understands and wished to proceed. Procedure is lumbar epidural steroid injection under local anesthetic using sterile prep and drape at the L5-S1 level using C-arm fluoroscopic guidance in both AP and lateral views medications injected is 120 mg Depo-Medrol +10mL preservative-free normal saline and 2 mL contrast- condition at discharge is stable patient tolerated procedure well had no complications. MAY LOBATO MD Apr 02, 2021 09:47
== END | disposition home or self-care (01) ==
LOC: PNCL 08:08
PROVIDERS: ATTEND Anesthesiology
DX: M51.16 Intervertebral disc disorders with radiculopathy, lumbar region (principal); M48.061 Spinal stenosis, lumbar region without neurogenic claudication; M16.12 Unilateral primary osteoarthritis, left hip; G47.30 Sleep apnea, unspecified; K21.9 Gastro-esophageal reflux disease without esophagitis; E66.9 Obesity, unspecified; M19.90 Unspecified osteoarthritis, unspecified site; Z90.49 Acquired absence of other specified parts of digestive tract; Z90.710 Acquired absence of both cervix and uterus; Z98.890 Other specified postprocedural states; Z79.899 Other long term (current) drug therapy; Z79.01 Long term (current) use of anticoagulants; Z88.1 Allergy status to other antibiotic agents; Z88.8 Allergy status to other drugs, medicaments and biological substances; Z72.89 Other problems related to lifestyle
CPT/HCPCS: 36415; 62323; 85610; J1030; J1040; Q9965

== ENCOUNTER → 2021-04-23 | Outpatient (CLI) | payer MEDICARE ==
[~2021-04-23] MED LIST changes: -ALIR150P SQ; +ALIR150P3 SQ; +AMMONIA AROMATIC 15% INHALANT AMPUL. ONE; +BUPIVACAINE MPF 0.25% 10 ML VIAL. ONE; +LIDOCAINE 1% PF 2 ML VIAL. ONE; +TIZA-75 PO; -TIZA4TAB2 PO; -methylPREDNISolone ACETATE 40 MG/ML VIAL. ONE
--- NOTE | 2021-04-23 10:12 | PDOC4 ---
Procedure Note: Procedure Note: Patient was consented for left intra-articular hip joint injection with fluoroscopic guidance. Risk were discussed including but not limited to bleeding infection possibility of intravascular injection sequelae spread of local anesthetic and numbness side effects steroid medication portals regarding pain control. Patient understands wished to proceed. Under sterile prep and drape patient in supine position patient's left hip was visualized using C-arm fluoroscopic guidance. Using 1% lidocaine area lateral to the hip joint was anesthetized and using direct fluoroscopic vision 22-gauge 5 inch Quincke needle with stylette was then advanced under direct fluoroscopic guidance into the left intra-articular hip joint. 3 cc of contrast was used to show good spread within the hip joint itself and without washout or uptake. At this time, 3 cc 0.25% bupivacaine and 80 mg Depo-Medrol was then injected into the hip joint. Needle was withdrawn and sterile bandage was applied. Patient tolerated procedure well and had no complications. MAY LOBATO MD Apr 23, 2021 10:12
--- NOTE | 2021-04-23 10:12 | PDOC ---
Progress Note - Pain Clinic Date of Service: DOS: DATE: 04/23/21 TIME: 10:07 Diagnosis: Dx: Lumbar to colopathy with lumbar degenerative disease lumbar spinal stenosis Left hip joint pain with primary osteoarthritis History or Present Illness: HPI: 86-year-old female returns for follow-up status post lumbar epidural steroid injection x3. Patient reports her back is near 100% improved but her left hip is her main complaint today and she is having significant pain in the left hip itself with walking standing specially putting all her weight on her left side with significant pain radiating to the groin now which is different than her last presentation. Patient reports the back is doing much better she is increase her activity with daily activities household activities travel with greater ease and comfort still significant pain however with weightbearing on the left hip patient reports her pain is in the posterior gluteus and lateral thigh and into the groin primarily. Patient reports no significant pain such as this on the right side. Patient rates the pain in her hip as an 8 on scale 10 is worse over the past week for an average 1 at its least is a 5 today patient reports no new motor or sensory deficits no new bowel or bladder incontinence. Patient reports that she has been taking Tylenol and increased to every 6 hours to every 8 hours also new medication of ibuprofen which has been mildly helpful with the hip pain but only about 10 to 20% improvement. Physical Exam: VS: Blood pressure is 142/74 pulse 62 respirations 18 temperature 90.0 F weight is 147 pounds PE: PHYSICAL EXAMINATION: GENERAL: The patient is awake, alert, oriented, appropriate, very pleasant in demeanor. HEENT: Shows normocephalic, atraumatic. Extraocular movements are intact and symmetrical. NECK: Shows anterior throat supple without palpable lymphadenopathy noted. Swallow reflex symmetrical. CHEST: Shows normal on inspection. Breath sounds are clear bilaterally, distant but no rales or rhonchi auscultated. HEART: Shows S1, S2 clear. No murmurs auscultated. ABDOMEN: Soft, nontender, nondistended, obese. BACK: Shows spine grossly in the midline. Normal-appearing cervical lordotic curvature. There is slightly increased thoracic kyphosis, some minor flattening of the lumbar lordotic curvature. Lumbar paraspinous muscles show symmetrical on inspection, on palpation shows some moderate tenderness diffusely throughout the upper, middle and lower distribution of the paraspinous muscles, but without specific trigger points, without radiation of pain. The patient has good rotational motion of the lumbar spine, both laterally as well as extension and flexion without significant difficulty. No tenderness over the spinous processes, sacrum or sacroiliac regions. EXTREMITIES: Lower extremities show deep tendon reflexes 2+ in the patellar and tendo calcaneus tendons. Motor exam is 5 on a scale of 5 with right dorsiflexion, extension, quadriceps and hamstring flexion and 4/5 on the left. Peripheral pulses are 1+ posterior tibial. No peripheral edema is noted bilaterally. Lower extremities are warm and dry to touch, equal in color and appearance. Patient has positive Lucas's maneuver on the left only with external rotation and posterior displacement of the left hip right side is negative. SKIN: Shows warm and dry, good turgor. No edema. No sores, rashes or bruising throughout. Procedure: Procedure: Options were discussed with the patient. Patient chart reviews her current medication regimen updated current review of systems updated today as well. We will proceed with left intra-articular hip joint injection today with fluoroscopic guidance. Risks were discussed including but not limited to bleeding infection possibility of intravascular injection sequelae spread local anesthetic numbness side effects of steroid medication exposure to fluoroscopy and portals regarding pain control. Patient understands wished to proceed. Patient return to the clinic in approximate 2 weeks for follow-up, was counseled as to return appointment, activity level, and side effects to be aware of. Medication Injected: Med Injected: Under sterile prep and drape patient in supine position patient's left hip was v isualized using C-arm fluoroscopic guidance. Using 1% lidocaine area lateral to the hip joint was anesthetized and using direct fluoroscopic vision 22-gauge 5 inch Quincke needle with stylette was then advanced under direct fluoroscopic guidance into the left intra-articular hip joint. 3 cc of contrast was used to show good spread within the hip joint itself and without washout or uptake. At this time, 3 cc 0.25% bupivacaine and 80 mg Depo-Medrol was then injected into the hip joint. Needle was withdrawn and sterile bandage was applied. Patient tolerated procedure well and had no complications. Condition at Discharge: Condition at Discharge: Condition at discharge stable, patient already procedure well had no complicatio ns. MAY LOBATO MD Apr 23, 2021 10:11
== END | disposition home or self-care (01) ==
LOC: PNCL 08:54
PROVIDERS: ATTEND Anesthesiology
DX: M16.12 Unilateral primary osteoarthritis, left hip (principal); M51.16 Intervertebral disc disorders with radiculopathy, lumbar region; M48.061 Spinal stenosis, lumbar region without neurogenic claudication; I48.91 Unspecified atrial fibrillation; E66.9 Obesity, unspecified; K21.9 Gastro-esophageal reflux disease without esophagitis; Z85.3 Personal history of malignant neoplasm of breast; Z90.49 Acquired absence of other specified parts of digestive tract; Z98.890 Other specified postprocedural states; Z79.899 Other long term (current) drug therapy; Z72.89 Other problems related to lifestyle; Z88.8 Allergy status to other drugs, medicaments and biological substances
CPT/HCPCS: 20610; 77002; J1040; J3490; Q9965

== ENCOUNTER → 2021-04-23 | Outpatient (CLI) | payer MEDICARE, OTHER ==
[~2021-04-23] MED LIST changes: -AMMONIA AROMATIC 15% INHALANT AMPUL. ONE; -BUPIVACAINE MPF 0.25% 10 ML VIAL. ONE; -IOHEXOL 180 MG/ML 10 ML VIAL. ONE; -LIDOCAINE 1% PF 2 ML VIAL. ONE; -TIZA-75 PO; +TIZA4TAB2 PO; -methylPREDNISolone ACETATE 80 MG/ML VIAL. ONE
[2021-04-23 08:47] LABS: PROTHROMBIN TIME PATIENT 12.5 SEC (11.7-14.0)
== END | disposition home or self-care (01) ==
LOC: LAB 08:27
PROVIDERS: ATTEND Anesthesiology
DX: Z51.81 Encounter for therapeutic drug level monitoring (principal); G47.30 Sleep apnea, unspecified; I48.91 Unspecified atrial fibrillation; K21.9 Gastro-esophageal reflux disease without esophagitis; M19.90 Unspecified osteoarthritis, unspecified site; Z85.3 Personal history of malignant neoplasm of breast; Z90.710 Acquired absence of both cervix and uterus; Z98.890 Other specified postprocedural states; Z79.899 Other long term (current) drug therapy; Z79.01 Long term (current) use of anticoagulants; Z88.8 Allergy status to other drugs, medicaments and biological substances; Z72.89 Other problems related to lifestyle
CPT/HCPCS: 36415; 85610

== ENCOUNTER → 2022-01-22 | Outpatient (CLI) | payer MEDICARE ==
[~2022-01-22] MED LIST changes: +RIVA10TA PO; +TIZA-75 PO; -TIZA4TAB2 PO
--- NOTE | 2022-01-22 08:53 | PDOC ---
Progress Note - Pain Clinic Date of Service: DOS: DATE: 01/22/22 TIME: 08:50 Diagnosis: Dx: Lumbar radiculopathy with lumbar degenerative disease lumbar spinal stenosis History or Present Illness: HPI: 86-year-old female returns for follow-up last seen April 2021 patient had left hip joint injection did very well with the pain reduced by about 80% for several months following the injection but reports that her back is her main complaint today radiating the bilateral lower extremities more on the right than the left but present bilaterally into the posterior gluteus posterior lateral thigh lateral anterior thigh anteromedial thighs some in the groins bilaterally as well and into the medial lower legs more on the right than the left patient reports is a 10 on scale 10 is worst 10 on average and 7 at its least and is a 7 today. Patient reports aching dull sharp tight shooting can be constant severe and unbearable with weightbearing better with sitting or laying down generally is not awaken her from sleep at night patient reports no bowel or bladder incontinence but has significant fatigability of the right lower extremity with ambulation. Patient reports no recent injury or accident no falls but she feels unstable with her right leg as it is more weak than the left when the pain is at its worst. Patient reports it can do that with sitting for prolonged periods greater than about 1 hour if she has been sitting and reading. Patient reports change positions helps the pain dissipate to some extent until she stands and is trying to stay active she continues to do stretching strengthening exercises from previous physical therapies as well as walking daily. Patient does have a walker and is using that with her today. Physical Exam: VS: Blood pressure is 165/80 pulse 59 respirations 18 temperature is 98.2 F height is 5 foot weight is 148 pounds. PE: PHYSICAL EXAMINATION: GENERAL: The patient is awake, alert, oriented, appropriate, very pleasant in demeanor HEENT: Shows normocephalic, atraumatic. Extraocular movements are intact and symmetrical. Oral cavity: Mucous membranes moist and pink. NECK: Shows anterior throat supple without palpable lymphadenopathy noted. CHEST: Shows normal on inspection. Breath sounds are clear bilaterally. HEART: Shows S1, S2 clear. No murmurs auscultated. ABDOMEN: Soft, nontender, nondistended. No palpable organomegaly is noted. BACK: Shows spine grossly in the midline. Normal-appearing cervical lordotic curvature. There is moderately increased thoracic kyphosis, some noted flattening of the lumbar lordotic curvature. Lumbar paraspinous muscles show symmetrical on inspection, on palpation shows some moderate tenderness diffusely throughout the upper, middle and lower distribution of the paraspinous muscles without specific trigger points, without radiation of pain. The patient has good rotational motion of the lumbar spine, both laterally as well as extension and flexion without significant difficulty. EXTREMITIES: Lower extremities show deep tendon reflexes 2+ in in the patellar and tendo calcaneus tendons. Motor exam is 4 on a scale of 5 with right dorsiflexion, extension, quadriceps and hamstring flexion and 5/5 on the left. Peripheral pulses are 1+ posterior tibial. No peripheral edema is noted bilaterally. Lower extremities are warm and dry to touch, equal in color and appearance. SKIN: Shows warm and dry, good turgor. No edema. No sores, rashes or bruising throughout. Procedure: Procedure: Check withOptions were discussed with the patient. Patient's old chart was reviewed as her current medication regimen updated her review systems updated today as well. We will is shrimp header to clear holding her Xarelto for 2 days prior to lumbar epidural steroid injection. If deemed safe and appropriate patient will return for lumbar epidural steroid injection at that time. In the meantime we will order physical therapy with traction for the lumbar spine she is had good success with this in the past. Patient will continue with stretching strength exercise as well as walking daily as tolerated in the meantime. Medication Injected: Med Injected: None Condition at Discharge: Condition at Discharge: Condition at discharge is stable. MAY LOBATO MD Jan 22, 2022 08:53
== END | disposition home or self-care (01) ==
LOC: PNCL 08:07
PROVIDERS: ATTEND Anesthesiology
DX: M51.16 Intervertebral disc disorders with radiculopathy, lumbar region (principal); M48.061 Spinal stenosis, lumbar region without neurogenic claudication; I48.91 Unspecified atrial fibrillation; K21.9 Gastro-esophageal reflux disease without esophagitis; E66.9 Obesity, unspecified; M19.90 Unspecified osteoarthritis, unspecified site; G47.30 Sleep apnea, unspecified; Z90.49 Acquired absence of other specified parts of digestive tract; Z90.710 Acquired absence of both cervix and uterus; Z98.890 Other specified postprocedural states; Z79.899 Other long term (current) drug therapy; Z88.8 Allergy status to other drugs, medicaments and biological substances
CPT/HCPCS: 99212; G0463